=== PATIENT | female | born 1970 | race Hispanic/Latino ===

== ENCOUNTER → 2021-12-28 08:24 | Outpatient (CLI) | payer OTHER, SELFPAY ==
[2021-12-28 10:36] LABS: Follicle Stimulating Hormone 31.3 mIU/mL
[2021-12-28 10:52] LABS: Estradiol, Total 21.1 pg/mL
[2021-12-28 10:58] LABS: Cancer Antigen 125 15.6 U/mL (0-35)
== END ==
PROVIDERS: Referring Provider Obstetrics & Gynecology; Visit Provider Obstetrics & Gynecology
DX: N95.0 Postmenopausal bleeding (principal); R93.89 Abnormal findings on diagnostic imaging of other specified body structures; N83.209 Unspecified ovarian cyst, unspecified side
CPT/HCPCS: 36415; 82670; 83001; 86304

== ENCOUNTER 2022-01-06 12:23 | Emergency (ER) | payer OTHER, SELFPAY ==
[2022-01-06 13:01] VITALS: BP 134/101; PULSE 78; RESP 18; TEMP 36.8; O2SAT 99; BMI 40.7
--- NOTE | 2022-01-06 13:06 | DI.RAD.S_ITS ---
PROCEDURE: XR FOOT LT MIN 3V INDICATIONS: pain, edema TECHNIQUE: 3 views of the foot were acquired. COMPARISON: None. FINDINGS: Bones: No fractures or dislocations. No suspicious bony lesions. Mild degenerative joint disease at the tailor navicular joint and naviculocuneiform joint. Soft tissues: No tibiotalar joint effusion. Achilles tendon appears normal. IMPRESSION: No acute osseous abnormalities. Mild degenerative joint disease. Dictated by: Yakov Worley M.D. on 01/06/2022 at 13:47 Approved by: Yakov Worley M.D. on 01/06/2022 at 13:49
--- NOTE | 2022-01-06 13:07 | DI.RAD.S_ITS ---
PROCEDURE: XR ANKLE LT MIN 3V INDICATIONS: pain, edema TECHNIQUE: 3 views of the ankle were acquired. COMPARISON: [facility], CR, XR FOOT LT MIN 3V, 01/06/2022, 13:15. FINDINGS: Bones: No fractures or dislocations. Ankle mortise is normally aligned. No suspicious bony lesions. Soft tissues: No tibiotalar joint effusion. Achilles tendon appears normal. IMPRESSION: No acute osseous abnormalities. If clinical symptoms persist, advanced imaging such as CT or MRI is suggested for further evaluation. Dictated by: Yakov Worley M.D. on 01/06/2022 at 13:42 Approved by: Yakov Worley M.D. on 01/06/2022 at 13:47
[2022-01-06 14:30] VITALS: BP 141/80; PULSE 73; RESP 18; O2SAT 99
--- NOTE | 2022-01-06 14:50 | ED.LOWEXIN ---
HPI - Extremity Injury (Lower) <Kyle Obregon PA-C - Last Filed: 01/06/22 19:44> General Chief Complaint: Extremity Injury, Lower Stated Complaint: Thinks broken foot Time Seen by Provider: 01/06/22 13:30 Source: patient Mode of arrival: Wheelchair History of Present Illness HPI Narrative: Patient has pain in her left lower leg and foot that started about a week ago. He stated she has been soaking the foot and lower extremity in the absence of about a week. Patient states yesterday she was walking around she noticed swelling of the foot. Patient states that the pain was worse when she took her shoe off. Patient states she took hydrocodone for pain. He uses hydrocodone as she took leftover from a previous procedure she had in the past. Patient admits that the swelling has subsided. Patient states the swelling subsided after she soak the foot and ice here today. Patient states it is very difficult for her to walk on the foot. Patient denies any other concerns at this time Related Data Home Medications Medication Instructions Recorded Confirmed oxycodone 5 mg capsule 5 mg PO Q6H PRN pain 12/01/21 01/13/22 cetirizine 10 mg tablet (Zyrtec) 10 mg PO DAILY 01/13/22 01/13/22 Allergies Allergy/AdvReac Type Severity Reaction Status Date / Time prochlorperazine Allergy Severe cardiac Verified 12/31/21 13:40 [From Compazine] arrest venom-honey bee Allergy Severe Anaphylaxis Verified 12/31/21 13:40 Review of Systems <Kyle Obregon PA-C - Last Filed: 01/06/22 19:44> Review of Systems Narrative: R.O.S.: General: No fever, chills, fatigue or other concerns. Cardiovascular: No chest pain, palpitations or other Cardiovascular related concerns. Respiratory: No S.O.B. or other Respiratory related concerns. HEENT: No congestion, ear pain, rhinorrhea, sore throat or tinnitus Gastrointestinal: No nausea, vomiting or other Gastrointestinal related concerns. Skin: No rash or associated abnormalities Neurological: Awake, alert and in not apparent distress. No Headaches, changes in vision or other related neurological concerns. Musculoskeletal: Has pain and swelling of left lower extremity and foot. Constitutional Constitutional: Denies body ache(s), Denies chills, Denies daytime sleepiness, Denies excessive sweating, Denies fatigue, Denies fever(s) and Denies snoring Cardiovascular Cardiovascular: Denies dyspnea and Denies dyspnea on exertion Respiratory Respiratory: Reports system reviewed and no additional complaints, except as documented, Denies chest congestion, Denies cough, Denies pain with cough, Denies dyspnea, Denies dyspnea on exertion, Denies snoring, Denies stridor and Denies wheezing Endocrine Endocrine: Denies excessive sweating and Denies fatigue Allergic/Immunologic Allergic/Immunologic: Denies wheezing Patient History <Kyle Obregon PA-C - Last Filed: 01/06/22 19:44> Surgical History (Updated 01/14/22 @ 01:42 by ELI Villegas) No history of previous surgery Family History (Updated 01/14/22 @ 01:43 by ELI Villegas) Mother Hypertension Other Diabetes mellitus Social History household members: spouse Smoking Status: Never smoker Smoking Status: Never smoker alcohol intake frequency: holidays/special occasions only Substance Use Type: does not use Exam <Kyle Obregon PA-C - Last Filed: 01/06/22 19:44> Initial Vital Signs Initial Vital Signs: Vital Signs Temperature 98.3 F 01/06/22 13:01 Pulse Rate 78 01/06/22 13:01 Respiratory Rate 18 01/06/22 13:01 Blood Pressure 134/101 H 01/06/22 13:01 Pulse Oximetry 99 01/06/22 13:01 Oxygen Delivery Method 01/06/22 13:01 Extrem Other: Pt has tenderness to dorsal area of left foot at 3rd thru 5th Metatarsal area. Foot has minimal to no swelling with good ROM. Left Foot has good capillary refill and intact sensation to touch. <Yareli Robins DO - Last Filed: 01/14/22 07:56> Initial Vital Signs Initial Vital Signs: Vital Signs Temperature 98.3 F 01/06/22 13:01 Pulse Rate 78 01/06/22 13:01 Respiratory Rate 18 01/06/22 13:01 Blood Pressure 134/101 H 01/06/22 13:01 Pulse Oximetry 99 01/06/22 13:01 Oxygen Delivery Method 01/06/22 13:01 Course <Kyle Obregon PA-C - Last Filed: 01/06/22 19:44> Orders Ordered: Discontinued Medications Ketorolac Tromethamine (Ketorolac 30 Mg/Ml Vial) 30 mg IM NOW ONE Stop: 01/06/22 14:24 Last Admin: 01/06/22 15:08 Dose: 30 mg Documented By: JOSE M Vital Signs Vital signs: Vital Signs - 8 hr 01/06/22 13:01 01/06/22 14:30 Temperature 98.3 F Pulse Rate 78 73 Respiratory Rate 18 18 Blood Pressure 134/101 H 141/80 H Pulse Oximetry 99 99 Oxygen Delivery Method Room Air Room Air <Yareli Robins DO - Last Filed: 01/14/22 07:56> Orders Ordered: Discontinued Medications Ketorolac Tromethamine (Ketorolac 30 Mg/Ml Vial) 30 mg IM NOW ONE Stop: 01/06/22 14:24 Last Admin: 01/06/22 15:08 Dose: 30 mg Documented By: JOSE M Vital Signs Vital signs: Vital Signs - 8 hr 01/06/22 13:01 01/06/22 14:30 Temperature 98.3 F Pulse Rate 78 73 Respiratory Rate 18 18 Blood Pressure 134/101 H 141/80 H Pulse Oximetry 99 99 Oxygen Delivery Method Room Air Room Air MDM - Extremity Injury (Lower) <Kyle Obregon PA-C - Last Filed: 01/06/22 19:44> Imaging Data Extremity x-ray #1: Radiologist's Impression: PROCEDURE:? XR ANKLE LT MIN 3V ? INDICATIONS:? pain, edema ? TECHNIQUE:? 3 views of the ankle were acquired.? ? COMPARISON:? [facility], , XR FOOT LT MIN 3V, 01/06/2022, 13:15. ? FINDINGS:? ? Bones:? No fractures or dislocations.? Ankle mortise is normally aligned.? No suspicious bony lesions.? ? Soft tissues:? No tibiotalar joint effusion.? Achilles tendon appears normal.? ? ? IMPRESSION:? No acute osseous abnormalities.? If clinical symptoms persist, advanced imaging such as CT or MRI is suggested for further evaluation. ? ? ? Dictated by: Yakov Worley M.D. on 01/06/2022 at 13:42 ? ? Approved by: Yakov Worley M.D. on 01/06/2022 at 13:47 ? Extremity x-ray #2: Radiologist's Impression: PROCEDURE:? XR FOOT LT MIN 3V ? INDICATIONS:? pain, edema ? TECHNIQUE:? 3 views of the foot were acquired.? ? COMPARISON:? None. ? FINDINGS:? ? Bones:? No fractures or dislocations.? No suspicious bony lesions.? Mild degenerative joint disease at the tailor navicular joint and naviculocuneiform joint. ? Soft tissues:? No tibiotalar joint effusion.? Achilles tendon appears normal.? ? ? IMPRESSION:? No acute osseous abnormalities.? Mild degenerative joint disease. ? ? Dictated by: Yakov Worley M.D. on 01/06/2022 at 13:47 ? ? Approved by: Yakov Worley M.D. on 01/06/2022 at 13:49 ? MDM Narrative Medical decision making narrative: Patient to emergency room today with complaint of left lower extremity and left foot pain today. She states the pain started about a week ago and she has been soaking the foot in Epsom salts. Patient agrees that pain is continuous but the swelling resolved today after applying ice. Physical exam left lower ext lower extremity left foot was unremarkable except for tenderness to palpation. X-ray of left lower extremity and left foot were also negative unremarkable. This provider ordered a Toradol shot that was administered today. And advised patient to follow-up with an orthopedic provider. This provider provided contact information for our suggested orthopedic provider. Discharge Plan Departure Patient Disposition: Home Clinical Impression: Ankle sprain and strain, Foot sprain Activity Restrictions/Additional Instructions: *You have been diagnosed with [ Left lower extremity/foot sprain/strain.] Please refrain from increased activity involving your left foot and lower extremity. I suggest you continue to take NSAIDs for pain. I also suggest to follow-up with the orthopedic doctor in regards to your foot pain if this continues. *What to do: *Please continue to take your regular medications as directed. [x ] No new medications given *Please follow up with your primary care provider in 2-3 days, call for an appointment. Let them know you were seen in the Emergency Department and that we ask that you be seen in follow up. We will electronically transmit a record of today's note if your PCP is in our system *If you do not have a primary care provider please contact the [facility] Resource line at [phone]. They will ask some questions about your medical history and help get you set up with a doctor in the community. *Return to Emergency Department if you should have any new, worsening or concerning symptoms, such as [fever greater than 101 F, shaking chills, worsening pain, persistent vomiting or other bothersome symptoms] Prescriptions: No Action oxycodone 5 mg capsule 5 mg PO Q6H PRN (Reason: pain) cetirizine [Zyrtec] 10 mg Tablet 10 mg PO DAILY Referrals: Macey Pichardo MD [Physician] - As soon as possible (Please contact Dr Pichardo regarding foot pain if it remains a concern. ) Stand Alone Forms: Work Release Note Visit Report Forms: Patient Portal/API <Yareli Robins DO - Last Filed: 01/14/22 07:56> Cosign ED Attending Tristanature Attestation: I was immediately available in the department for consultation. Documentation has been reviewed.
[2022-01-06] MEDS: KETOROLAC 30 MG/ML VIAL IM (15:08)
[2022-01-06 15:31] VITALS: BP 117/83; PULSE 69; RESP 18; O2SAT 97
== END 2022-01-06 15:32 | disposition home or self-care (01) ==
PROVIDERS: Emergency Provider Physician Assistant
DX: S93.402A Sprain of unspecified ligament of left ankle, initial encounter (principal); S96.912A Strain of unspecified muscle and tendon at ankle and foot level, left foot, initial encounter; W19.XXXA Unspecified fall, initial encounter
CPT/HCPCS: 73610; 73630; 96372; 99283; J1885

== ENCOUNTER 2022-01-13 20:29 | Inpatient (IN) | payer OTHER, SELFPAY ==
[2022-01-13 20:34] VITALS: BP 154/104; PULSE 104; RESP 60; TEMP 38.6; O2SAT 95
--- NOTE | 2022-01-13 20:42 | DI.RAD.S_ITS ---
PROCEDURE: XR CHEST 1V INDICATIONS: shortness of breath TECHNIQUE: One view of the chest was acquired. COMPARISON: None. FINDINGS: Surgical changes and devices: None. Lungs and pleura: There are patchy indistinct airspace opacities medially in the right lung base. No pleural effusions or pneumothorax. Mediastinum: Mediastinal contours appear normal. Heart size is normal. Bones and chest wall: No suspicious bony lesions. Overlying soft tissues appear unremarkable. IMPRESSION: 1. Medial right basilar indistinct opacities are nonspecific but suggestive of atypical pneumonia given clinical history. Dictated by: Seth Warner M.D. on 01/13/2022 at 21:49 Approved by: Seth Warner M.D. on 01/13/2022 at 21:50
--- NOTE | 2022-01-13 20:45 | ED.GENADULT ---
HPI - General Adult General Chief complaint: Upper Respiratory Symptoms Stated complaint: covid+ Time Seen by Provider: 01/13/22 20:30 History of Present Illness HPI narrative: 51-year-old woman with minimal significant medical history, vaccinated against COVID, 1 episode of COVID already presents with significant respiratory distress and severe fatigue unable to get out of the car by herself the needing 3 person assist to get onto the stretcher with reports of Covid19 positive test at home and symptoms for approximately 2 days. She is altered so the timeline is needing additional confirmation. She states that she has been short of breath, coughing but is not able to participate more in history or review of systems. Related Data Home Medications Medication Instructions Recorded Confirmed oxycodone 5 mg capsule 5 mg PO Q6H PRN 12/01/21 12/31/21 Allergies Allergy/AdvReac Type Severity Reaction Status Date / Time prochlorperazine Allergy Severe cardiac Verified 12/31/21 13:40 [From Compazine] arrest venom-honey bee Allergy Severe Anaphylaxis Verified 12/31/21 13:40 Review of Systems Review of Systems ROS Unobtainable: Unobtainable due to medical condition Patient History Social History Smoking Status: Never smoker Smoking Status: Never smoker alcohol intake frequency: holidays/special occasions only Substance Use Type: does not use Exam Initial Vital Signs Initial Vital Signs: Vital Signs Temperature 101.5 F H 01/13/22 20:34 Pulse Rate 104 H 01/13/22 20:34 Respiratory Rate 60 H 01/13/22 20:34 Blood Pressure 154/104 H 01/13/22 20:34 Pulse Oximetry 95 01/13/22 20:34 Oxygen Delivery Method 01/13/22 20:34 General: Significant respiratory distress with impressive tachypnea, global weakness, altered mental status HEENT: dry mucous membranes, normal sclera with reactive pupils, Neck: No JVD, supple Respiratory: tachpnic but not kusmal breathing, Lungs are clear to auscultation, no wheezing no rales no rhonchi. Full and symmetrical air movement Cardiac: tachycardic but otherwise Regular rate and rhythm no murmurs no bruits Abdomen: Soft, nontender, good bowel tones, no flank pain Chest: salonpas patchover right scapula, no rashes Skin: Warm and dry, no rashes Neurologic: Globally weak, altered mental status, moving all extremities Extremities: Slonpas patch over dorsum L foot, well perfused, no edema Psych: Cooperative, appropriate insight and affect Course Orders Ordered: ED Orders 01/13/22 20:20 D Dimer Stat 01/13/22 20:40 Arterial Blood Gas Stat EKG-12 Lead Stat 01/13/22 20:42 XR chest 1V Stat Blood Culture Stat Measure peak expiratory flow ONCE RT Consult Eval and Treat Now 01/13/22 20:45 Complete Blood Count AUTO DIFF Stat Comprehensive Metabolic Panel Stat Lactate (Lactic Acid) Stat 01/13/22 21:23 Respiratory Panel (Film Array) Stat Sodium Chloride (Normal Saline 0.9%) 1,000 mls @ 1,000 mls/hr IV BOLUS ONE Stop: 01/13/22 23:13 Remdesivir 200 mg/ Sodium (Chloride) 250 mls @ 250 mls/hr IV NOW ONE Stop: 01/13/22 23:19 Discontinued Medications Dexamethasone (Dexamethasone 10 Mg/Ml Vial) 6 mg IV NOW ONE Stop: 01/13/22 22:21 Ondansetron HCl (Ondansetron 4 Mg/2 Ml Inj) 4 mg IV NOW ONE Stop: 01/13/22 22:15 Oxycodone/Acetaminophen (Oxycodone/Acetaminophen 5/325 Tablet) 1 tab PO NOW ONE Stop: 01/13/22 22:15 Vital Signs Vital signs: Vital Signs - 8 hr 01/13/22 20:34 Temperature 101.5 F H Pulse Rate 104 H Respiratory Rate 60 H Blood Pressure 154/104 H Pulse Oximetry 95 Oxygen Delivery Method Room Air Medical Decision Making Lab Data Result diagrams: 01/13/22 20:45 01/13/22 20:45 Labs: Lab Results 01/13/22 01/13/22 01/13/22 Range/Units 20:20 20:40 20:45 WBC 9.6 (4.5-11.0) X10^3/uL RBC 4.77 (4.0-5.2) X10^6/uL Hgb 14.6 (12.0-16.0) g/dL Hct 40.9 (36-46) % MCV 85.7 (80-100) fL MCH 30.5 (26-34) PG MCHC 35.6 (30-36) % RDW 13.1 (11.6-14.8) % Plt Count 314 (150-400) X10^3/uL Neut % (Auto) 82.7 H (50-75) % Lymph % (Auto) 9.1 L (25-40) % Sullivan % (Auto) 7.7 (3-14) % Eos % (Auto) 0.3 L (2-4) % Baso % (Auto) 0.2 (0-2) % Neut # (Auto) 7900 H (9540-5887) /uL Lymph # (Auto) 900 L (4113-1182) /uL Sullivan # (Auto) 700 (0-900) /uL Eos # (Auto) 0 (0-450) /uL Baso # (Auto) 0 (0-100) /uL D-Dimer < 500 (<500) ng/ml ABG pH 7.44 (7.35-7.45) ABG pCO2 36.9 (35-45) mmHg ABG pO2 118 H (80-100) mmHg ABG HCO3 25 (22-26) mmol/L ABG Total CO2 26 (21-31) mmol/L ABG O2 Saturation 99 (95-100) % ABG Base Excess 1.0 (-2-2) mmol/L FiO2 28 Sodium (137-145) mmol/L Potassium (3.4-5.1) mmol/L Chloride (98-107) mmol/L Carbon Dioxide (22-32) mmol/L BUN (7-17) mg/dL Creatinine (0.52-1.04) mg/dL Estimated GFR (>60) mL/min BUN/Creatinine Ratio (6-22) Glucose (70-100) mg/dL Lactate (0.7-2.1) mmol/L Calcium (8.4-10.2) mg/dL Total Bilirubin (0.2-1.3) mg/dL AST (14-36) IU/L ALT (<35) IU/L Alkaline Phosphatase (38-126) U/L Total Protein (6.3-8.2) g/dL Albumin (3.5-5.0) g/dL Globulin (1.7-4.1) g/dL Albumin/Globulin Ratio (1.0-2.8) 01/13/22 01/13/22 Range/Units 20:45 20:45 WBC (4.5-11.0) X10^3/uL RBC (4.0-5.2) X10^6/uL Hgb (12.0-16.0) g/dL Hct (36-46) % MCV (80-100) fL MCH (26-34) PG MCHC (30-36) % RDW (11.6-14.8) % Plt Count (150-400) X10^3/uL Neut % (Auto) (50-75) % Lymph % (Auto) (25-40) % Sullivan % (Auto) (3-14) % Eos % (Auto) (2-4) % Baso % (Auto) (0-2) % Neut # (Auto) (9058-1421) /uL Lymph # (Auto) (8565-0942) /uL Sullivan # (Auto) (0-900) /uL Eos # (Auto) (0-450) /uL Baso # (Auto) (0-100) /uL D-Dimer (<500) ng/ml ABG pH (7.35-7.45) ABG pCO2 (35-45) mmHg ABG pO2 (80-100) mmHg ABG HCO3 (22-26) mmol/L ABG Total CO2 (21-31) mmol/L ABG O2 Saturation (95-100) % ABG Base Excess (-2-2) mmol/L FiO2 Sodium 135 L (137-145) mmol/L Potassium 3.9 (3.4-5.1) mmol/L Chloride 102 (98-107) mmol/L Carbon Dioxide 26 (22-32) mmol/L BUN 10 (7-17) mg/dL Creatinine 0.61 (0.52-1.04) mg/dL Estimated GFR > 60 (>60) mL/min BUN/Creatinine Ratio 16.4 (6-22) Glucose 114 H (70-100) mg/dL Lactate 1.6 (0.7-2.1) mmol/L Calcium 8.8 (8.4-10.2) mg/dL Total Bilirubin 0.3 (0.2-1.3) mg/dL AST 55 H (14-36) IU/L ALT 42 H (<35) IU/L Alkaline Phosphatase 177 H (38-126) U/L Total Protein 8.3 H (6.3-8.2) g/dL Albumin 4.3 (3.5-5.0) g/dL Globulin 4.0 (1.7-4.1) g/dL Albumin/Globulin Ratio 1.1 (1.0-2.8) Imaging Data Chest x-ray: Radiologist's Impression: FINDINGS:? ? Surgical changes and devices:? None.? ? Lungs and pleura:? There are patchy indistinct airspace opacities medially in the right lung base.? No pleural effusions or pneumothorax.? ? Mediastinum:? Mediastinal contours appear normal.? Heart size is normal.? ? Bones and chest wall:? No suspicious bony lesions.? Overlying soft tissues appear unremarkable.? ? IMPRESSION:? ? 1. Medial right basilar indistinct opacities are nonspecific but suggestive of atypical pneumonia given clinical history.? ? Dictated by: Seth Warner M.D. on 01/13/2022 at 21:49 ? ? ECG Data Interpretation: Sinus rhythm at a rate of 99 Normal intervals, normal axis No acute ischemic change MDM Narrative Medical decision making narrative: Re-evaluation patient is looking slightly better and is able to answer more questions. She states that she has been vomiting, she has a severe headache, severe myalgias incredible fatigue but has not been able to sleep due to the cough and headache. Labs are quite reassuring with no evidence of sepsis acute coronary syndrome, pulmonary embolism. Chest x-ray is consistent with mild COVID pneumonia. Despite her tachypnea, her ABG is reassuring. Respiratory rate has come down from the 60s into the upper 20s and 30s on 2 L of oxygen. Oxygen saturations have always consistently been above 95% tender currently at 100% on 2 L. Given the history of vomiting will go ahead and give her L of fluid, some Zofran to help with the nausea Percocet to help with the headache, myalgias and also suppress her cough. She is weak enough in tachypneic enough that hospitalization is appropriate at this time and will contact the hospitalist. Initial dose of dexamethasone and remdesivir given the emergency department with additional follow-up orders per the hospitalist service. Discharge Plan Departure Patient Disposition: Admitted As Inpatient Clinical Impression: Pneumonia due to 2019 novel coronavirus, Acute respiratory distress
[2022-01-13 21:06] LABS: Add Manual Diff / Slide Review NO; Basophils Absolute Auto 0 /uL (0-100); Basophils Percent Auto 0.2 % (0-2); Eosinophils Absolute Auto 0 /uL (0-450); Eosinophils Percent Auto 0.3 % (2-4); Hematocrit 40.9 % (36-46); Hemoglobin 14.6 g/dL (12.0-16.0); Lymphocytes Absolute Auto 900 /uL (1100-4500); Lymphocytes Percent Auto 9.1 % (25-40); Mean Corpuscular HGB Conc 35.6 % (30-36); Mean Corpuscular Hemoglobin 30.5 PG (26-34); Mean Corpuscular Volume 85.7 fL (80-100); Monocytes Absolute Auto 700 /uL (0-900); Monocytes Percent Auto 7.7 % (3-14); Neutrophils Absolute Auto 7900 /uL (1500-7000); Neutrophils Percent Auto 82.7 % (50-75); Platelet Count 314 X10^3/uL (150-400); Red Blood Cell Count 4.77 X10^6/uL (4.0-5.2); Red Cell Distribution Width 13.1 % (11.6-14.8); White Blood Cell Count 9.6 X10^3/uL (4.5-11.0)
[2022-01-13 21:06] LABS: HCO3 ABG 25 mmol/L (22-26); Oxygen Saturation ABG 99 % (95-100); PCO2 ABG 36.9 mmHg (35-45); PO2 ABG 118 mmHg (80-100); TCO2 ABG 26 mmol/L (21-31); pH ABG 7.44 (7.35-7.45)
[2022-01-13 21:07] LABS: Fractionated Inspired Oxygen 28
[2022-01-13 21:13] LABS: D Dimer < 500 ng/ml (<500)
[2022-01-13 21:16] LABS: Alanine Aminotransferase 42 IU/L (<35); Albumin 4.3 g/dL (3.5-5.0); Albumin Globulin Ratio 1.1 (1.0-2.8); Alkaline Phosphatase 177 U/L (38-126); Aspartate Aminotransferase 55 IU/L (14-36); BUN Creatinine Ratio 16.4 (6-22); Bilirubin Total 0.3 mg/dL (0.2-1.3); Blood Urea Nitrogen 10 mg/dL (7-17); Calcium 8.8 mg/dL (8.4-10.2); Carbon Dioxide 26 mmol/L (22-32); Chloride 102 mmol/L (98-107); Estimated Glomerular Filt Rate > 60 mL/min (>60); Glucose 114 mg/dL (70-100); HEMOLYSIS < 15 (0-50); Potassium 3.9 mmol/L (3.4-5.1); Sodium 135 mmol/L (137-145); Total Protein 8.3 g/dL (6.3-8.2)
[2022-01-13 21:18] LABS: Lactate (Lactic Acid) 1.6 mmol/L (0.7-2.1)
[2022-01-13 22:26] VITALS: PULSE 105; RESP 25; O2SAT 100
[2022-01-13 22:30] VITALS: BP 123/68; PULSE 101; RESP 16; O2SAT 99
[2022-01-13] MEDS: DEXAMETHASONE 10 MG/ML VIAL 6 MG IV (22:30)
[2022-01-13] MEDS: ONDANSETRON 4 MG/2 ML INJ IV (22:30)
[2022-01-13] MEDS: SODIUM CHLORIDE 0.9% 1,000 ML 1000 ML IV (22:30)
[2022-01-13] MEDS: OXYCODONE/ACETAMINOPHEN 5/325 TABLET 1 TAB PO (22:30)
[2022-01-13] MEDS: REMDESIVIR 200 MG in SODIUM CHLORIDE 0.9% 210 ML 250 MG IV (22:47)
[2022-01-13 22:50] LABS: Adenovirus Not Detected (Not Detect)
[2022-01-13 22:53] LABS: B. parapertussis Not Detected (Not Detecte); Bordetella pertussis Not Detected (Not Detecte); Coronavirus 229E Not Detected (Not Detect); Coronavirus HKU1 Not Detected (Not Detect); Coronavirus NL 63 Not Detected (Not Detect); Coronavirus OC43 Not Detected (Not Detect); Human Metapneumovirus Not Detected (Not Detect); Human Rhinovirus/Enterovirus Not Detected (Not Detect); Influenza A Not Detected (Not Detect); Influenza B Not Detected (Not Detect); Parainfluenza Virus 1 Not Detected (Not Detect); Parainfluenza Virus 2 Not Detected (Not Detect); Parainfluenza Virus 3 Not Detected (Not Detect); Parainfluenza Virus 4 Not Detected (Not Detect); Respiratory Syncytial Virus Not Detected (Not Detect); SARS- CoV-2 Detected (Not Detecte)
[2022-01-13 22:54] LABS: Chlamydophila pneumoniae Not Detected (Not Detect); Mycoplasma pneumoniae Not Detected (Not Detect)
[2022-01-13 23:12] VITALS: BMI 41.6
--- NOTE | 2022-01-13 23:47 | P.HP_ITS ---
History of Present Illness History of Present Illness Date Patient Seen: 01/13/22 Time Patient Seen: 23:47 Chief complaint: covid+ Narrative: Leighann Walker is a 51-year-old female who is now on her 3rd episode of COVID-19 pneumonia. She states she has been feeling poorly for the past 3 days, has a headache, fever, nausea with vomiting, productive cough, body aches and possibly unrelated left-sided foot swelling to the point of requiring her to stop working. 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 She states that she got COVID [place] and she has been vaccinated with 1 booster. In the emergency room the patient it is oxygen saturation was no home but she was very tachypneic at a respiratory rate of 60. When she was administered oxygen by nasal cannula her blood respiratory rate went down to the 20s and 30s on 2 L of nasal cannula. Chest x-ray very done in the ED indicated medial right basilar indistinct opacities...suggestive of an atypical pneumonia. CBC is unremarkable except with a mildly elevated neutrophil count of 7900 and a low lymph count of 900, ABG is largely normal, she had a sodium of 135, glucose of 114, mildly elevated transaminases with an AST of 55 ALT 42 alk-phos 177, viral PCR panel is negative with exception of COVID-19 which was positive. Patient History Surgical History (Updated 01/14/22 @ 01:42 by ELI Villegas) No history of previous surgery Family & Social History Family History (Updated 01/14/22 @ 01:43 by ELI Villegas) Mother Hypertension Other Diabetes mellitus Social History: household members spouse Prior Living Arrangements House Safety & Behavioral: Feels Safe in Current Yes Environment Been Physically Hurt or No Threatened By a Person Tobacco & Substance use: Smoking Status Never smoker alcohol intake frequency holiday/special occasion Substance Use Type does not use Meds Home Medications and Allergies Home Medications Medication Instructions Recorded Confirmed Type oxycodone 5 mg capsule 5 mg PO Q6H PRN pain 12/01/21 01/13/22 History cetirizine 10 mg tablet (Zyrtec) 10 mg PO DAILY 01/13/22 01/13/22 History Allergies Allergy/AdvReac Type Severity Reaction Status Date / Time prochlorperazine Allergy Severe cardiac Verified 12/31/21 13:40 [From Compazine] arrest venom-honey bee Allergy Severe Anaphylaxis Verified 12/31/21 13:40 Review of Systems Review of Systems ROS: Yes All systems reviewed with the patient and are negative except as otherwise documented Exam Vital Signs (past 8 hours): - 01/13/22 20:34 01/13/22 22:26 01/13/22 22:30 Temperature 101.5 F H Pulse Rate 104 H 105 H Respiratory Rate 60 H 25 H Blood Pressure 154/104 H 123/68 Pulse Oximetry 95 100 Oxygen Delivery Method Room Air Nasal Cannula Oxygen Flow Rate 2 01/13/22 22:30 Temperature Pulse Rate 101 H Respiratory Rate 16 Blood Pressure Pulse Oximetry 99 Oxygen Delivery Method Nasal Cannula Oxygen Flow Rate 2 Oxygen Delivery Method Nasal Cannula Oxygen Flow Rate 2 Narrative Exam Narrative: Gen: Alert, oriented, morbidly obese 51 y.o. female, appears uncomfortable HEENT: normocephalic, atraumatic, conjunctiva clear, sclera non-icteric, oral mucosa pink and moist Neck: supple, full ROM, no JVD, trachea is midline Resp: Lungs CTA, non-labored breathing on 2 L of nasal cannula CV: RRR, no murmur or rubs Abd: soft, non-tender, normoactive BTs Skin: no lesions or rashes, dry and intact Neuro: Alert and oriented X 4 w/no focal deficits. Speech clear and coherent. Extremities: Left leg is swollen and tender with a positive Syed?s sign, negative on the right Psyche: Mildly labile normal mood and affect. Objective Labs Result Diagrams: 01/13/22 20:45 01/13/22 20:45 Labs: Laboratory Results - last 24 hr 01/13/22 01/13/22 01/13/22 20:20 20:40 20:45 WBC 9.6 RBC 4.77 Hgb 14.6 Hct 40.9 MCV 85.7 MCH 30.5 MCHC 35.6 RDW 13.1 Plt Count 314 Neut % (Auto) 82.7 H Lymph % (Auto) 9.[address] [place] % (Auto) 7.7 Eos % (Auto) 0.3 L Baso % (Auto) 0.2 Neut # (Auto) 7900 H Lymph # (Auto) [address] [place] [place] # (Auto) 700 Eos # (Auto) 0 Baso # (Auto) 0 D-Dimer < 500 ABG pH 7.44 ABG pCO2 36.9 ABG pO2 118 H ABG HCO3 25 ABG Total CO2 26 ABG O2 Saturation 99 ABG Base Excess 1.0 FiO2 28 Sodium Potassium Chloride Carbon Dioxide BUN Creatinine Estimated GFR BUN/Creatinine Ratio Glucose Lactate Calcium Total Bilirubin AST ALT Alkaline Phosphatase Total Protein Albumin Globulin Albumin/Globulin Ratio Chlamy pneumoniae PCR Adenovirus (PCR) B. pertussis DNA (PCR) B.parapertussis DNA PCR Coronavirus OC43 (PCR) Coronavirus HKU1 (PCR) Coronavirus 229E (PCR) SARS-CoV-2 (PCR) Coronavirus NL63 (PCR) Human Metapneumovir PCR Influenza Type A (PCR) Influenza Type B (PCR) M. pneumoniae (PCR) Parainfluenza 1 (PCR) Parainfluenza 2 (PCR) Parainfluenza 3 (PCR) Parainfluenza 4 (PCR) RSV (PCR) Entero/Rhino (PCR) 01/13/22 01/13/22 01/13/22 20:45 20:45 21:23 WBC RBC Hgb Hct MCV MCH MCHC RDW Plt Count Neut % (Auto) Lymph % (Auto) [place] % (Auto) Eos % (Auto) Baso % (Auto) Neut # (Auto) Lymph # (Auto) [place] # (Auto) Eos # (Auto) Baso # (Auto) D-Dimer ABG pH ABG pCO2 ABG pO2 ABG HCO3 ABG Total CO2 ABG O2 Saturation ABG Base Excess FiO2 Sodium 135 L Potassium 3.9 Chloride 102 Carbon Dioxide 26 BUN 10 Creatinine 0.61 Estimated GFR > 60 BUN/Creatinine Ratio 16.4 Glucose 114 H Lactate 1.6 Calcium 8.8 Total Bilirubin 0.3 AST 55 H ALT 42 H Alkaline Phosphatase 177 H Total Protein 8.3 H Albumin 4.3 Globulin 4.0 Albumin/Globulin Ratio 1.1 Chlamy pneumoniae PCR Not detected Adenovirus (PCR) Not detected B. pertussis DNA (PCR) Not detected B.parapertussis DNA PCR Not detected Coronavirus OC43 (PCR) Not detected Coronavirus HKU1 (PCR) Not detected Coronavirus 229E (PCR) Not detected SARS-CoV-2 (PCR) Detected H Coronavirus NL63 (PCR) Not detected Human Metapneumovir PCR Not detected Influenza Type A (PCR) Not detected Influenza Type B (PCR) Not detected M. pneumoniae (PCR) Not detected Parainfluenza 1 (PCR) Not detected Parainfluenza 2 (PCR) Not detected Parainfluenza 3 (PCR) Not detected Parainfluenza 4 (PCR) Not detected RSV (PCR) Not detected Entero/Rhino (PCR) Not detected Assessment & Plan Assessment & Plan narrative: Leighann Walker is admitted for treatment and management of COVID-19 pneumonia 1. COVID-19 Pneumonia, acute, present on admission * Patient was administered loading dose of IV Remdesevir 200 mg and dexamethasone 6 mg in the ED * Continue IV Remdesevir 100 mg and dexamethasone 6 mg starting 01/14 * Supplemental O2 by nasal cannula 1-2 liters * Patient has has been vaccinated with one booster * She is encouraged to prone 12 hours a day * This is her 3rd episode of COVID-19 Left lower leg and foot pain, present on admission * She has had for 1-2 weeks and unable to weight bear * US doppler ordered for tomorrow to r/o DVT * D-dimer was less than 500 * Patient may be in a hypercoagulable state VTE Prophylaxis: Wells risk score 4.5 Enoxaparin 55 mg subQ twice daily weight based right legl SCDs Patient is admitted to the inpatient service due to the severity of disease, risks of further disease progression and this stay is expected to exceed 2 midnights. FEN: IV fluids: saline lock, diet: general, labs: CBC, C/BMP, liver enzymes, Mag, PT/INR Consultants None Dispo: probable discharge to home Code status: Full Code as discussed with the patient who identifies her Johnna as her surrogate and POA. [X] I have utilized all available immediate resources to obtain, update, or review of the patient's current medications COVID-19 COVID-19 status: Positive Result date/Date tested (Pos, Neg/Pending): 01/13/22 Time Spent With Patient Critical Care time: I spent a total of [] minutes of critical care time on this patient's care today; this time is exclusive of procedural time. Scores Wells' Criteria for PE Clinical signs and symptoms of DVT: Yes PE is #1 Dx or equally likely: No Heart rate > 100: Yes Immobilization at least 3 days or surg in previous 4 weeks: No History of PE or DVT: No Hemoptysis: No Malignancy w/Treatment within 6 months or palliative: No Wells' PE Score total: 4.5 Quality VTE Deep Vein Thrombosis/Pulmonary Embolism Present on Admission: No MIPS - Admit I confirm the patient?s Advance Care Plan is present, Code status is documented, Surrogate decision maker is in patient?s record [If Yes, STOP here]: Yes MIPS - DC The patient has current or prior documentation of left ventricular ejection fraction (LVEF) less than 40%, or moderate or severely depressed left ventricular systolic function.: No
--- NOTE | 2022-01-13 23:58 | PC.NURSE ---
Pt. admitted from Emergency room, diagnosed with Covid Pneumonia. Oriented to her room, awake but very lethargic. Occasional non productive cough & dyspnea with exertion. 2 liters 02/NC SPO2 99-100%, turned 02 down to 1 liter & sat. 97-98 %. Instructed to call for any needs & assistance, call light with in reach & bed alarm activated. Will cont. POC & monitor.
[2022-01-14] VITALS (8 sets, daily range): BP systolic 92–109; BP diastolic 55–67; PULSE 64–86; RESP 20–24; TEMP 35.9–37.6; O2SAT 96–100
[2022-01-14] MEDS: SODIUM CHLORIDE 0.9% FLUSH 10 ML IV ×4 (00:15→21:20)
[2022-01-14] MEDS: ENOXAPARIN 60 MG/0.6 ML SYRINGE 55 MG SUBCUT ×3 (00:27→20:19)
--- NOTE | 2022-01-14 07:00 | DI.US.S_ITS ---
PROCEDURE: US PERIPH VENOUS LOW EXTREM LT INDICATIONS: PAIN TECHNIQUE: Real-time imaging, as well as color and pulse Doppler interrogation, were performed of the lower extremity deep veins from the inguinal ligament to the popliteal fossa. COMPARISON: None. FINDINGS: The common femoral, femoral and popliteal veins are normally compressible, and free of intraluminal thrombus. Color and pulse Doppler demonstrate normal phasic intraluminal flow. There is normal augmentation response to distal compression maneuver. IMPRESSION: Negative for deep venous thrombosis. Dictated by: Isai Hilliard M.D. on 01/14/2022 at 7:22 Approved by: Isai Hilliard M.D. on 01/14/2022 at 7:22
[2022-01-14 08:39] LABS: Add Manual Diff / Slide Review NO; Basophils Absolute Auto 0 /uL (0-100); Basophils Percent Auto 0.2 % (0-2); Eosinophils Absolute Auto 0 /uL (0-450); Hematocrit 39.8 % (36-46); Hemoglobin 13.9 g/dL (12.0-16.0); Lymphocytes Absolute Auto 700 /uL (1100-4500); Lymphocytes Percent Auto 8.8 % (25-40); Mean Corpuscular Hemoglobin 30.3 PG (26-34); Mean Corpuscular Volume 86.6 fL (80-100); Monocytes Absolute Auto 100 /uL (0-900); Monocytes Percent Auto 1.6 % (3-14); Neutrophils Absolute Auto 7600 /uL (1500-7000); Neutrophils Percent Auto 89.4 % (50-75); Platelet Count 319 X10^3/uL (150-400); Red Cell Distribution Width 12.8 % (11.6-14.8); White Blood Cell Count 8.5 X10^3/uL (4.5-11.0)
[2022-01-14 09:10] LABS: Alanine Aminotransferase 35 IU/L (<35); Albumin 3.9 g/dL (3.5-5.0); Albumin Globulin Ratio 1.1 (1.0-2.8); Alkaline Phosphatase 145 U/L (38-126); Aspartate Aminotransferase 41 IU/L (14-36); BUN Creatinine Ratio 19.3 (6-22); Bilirubin Total 0.3 mg/dL (0.2-1.3); Blood Urea Nitrogen 11 mg/dL (7-17); Calcium 8.3 mg/dL (8.4-10.2); Carbon Dioxide 26 mmol/L (22-32); Chloride 105 mmol/L (98-107); Estimated Glomerular Filt Rate > 60 mL/min (>60); Globulin 3.6 g/dL (1.7-4.1); Glucose 142 mg/dL (70-100); HEMOLYSIS < 15 (0-50); Sodium 137 mmol/L (137-145); Total Protein 7.5 g/dL (6.3-8.2)
[2022-01-14] MEDS: DEXAMETHASONE 10 MG/ML VIAL 6 MG IV (09:18)
[2022-01-14] MEDS: OXYCODONE/ACETAMINOPHEN 7.5/325 TABLET 1 TAB PO (09:21)
[2022-01-14] MEDS: IBUPROFEN 400 MG TABLET PO (12:54)
[2022-01-14] MEDS: ACETAMINOPHEN 325 MG TABLET 650 MG PO (12:55)
[2022-01-14] MEDS: EXCEDRIN EXTRA STRENGTH 2 EACH PO (18:27)
--- NOTE | 2022-01-14 19:42 | PM.PN.1 ---
Subjective Subjective Date Patient Seen: 01/14/22 Interval history: 51-year-old female with class 3 obesity admitted with COVID 19 pneumonia. She was admitted last night. This is her 3rd episode of of COVID. She had her 1st bout with COVID in June of 2020 and required hospitalization for a couple of days. Is her 2nd episode was in October of 2020 and Lamictal she was hospitalized for 4-5 days. She has been vaccinated with the Moderna vaccine x2 but has not yet received a booster. She reports chest tightness, headache, and diffuse myalgias this time. She also reports pain in her left calf. Exam Vital Signs (past 8 hours): - 01/14/22 14:34 01/14/22 17:00 Temperature 97.9 F Pulse Rate 72 Respiratory Rate 20 Blood Pressure 92/59 L Pulse Oximetry 99 96 Oxygen Delivery Method Nasal Cannula Oxygen Flow Rate 1 1 Oxygen Delivery Method Nasal Cannula Oxygen Flow Rate 1 Const Other: GEN: Ill-appearing middle-aged female, Alert and oriented x 3, appears fatigued HEENT:NC, Face symmetric CHEST: Respiratory excursions symmetric, CTAB CV: RRR, no M/R/G ABD: Soft, NT/ND, BT present in all 4 quadrants, no organomegaly or masses EXTR: warm, well perfused, no C/C/E SKIN: warm and dry, no rash NEURO: Alert and oriented x 3, nonfocal Objective Labs Result Diagrams: 01/14/22 07:55 01/14/22 07:55 Labs: Laboratory Results - last 24 hr 01/13/22 01/13/22 01/13/22 20:20 20:40 20:45 WBC 9.6 RBC 4.77 Hgb 14.6 Hct 40.9 MCV 85.7 MCH 30.5 MCHC 35.6 RDW 13.1 Plt Count 314 Neut % (Auto) 82.7 H Lymph % (Auto) 9.1 L [place] % (Auto) 7.7 Eos % (Auto) 0.3 L Baso % (Auto) 0.2 Neut # (Auto) 7900 H Lymph # (Auto) 900 L [place] # (Auto) 700 Eos # (Auto) 0 Baso # (Auto) 0 D-Dimer < 500 ABG pH 7.44 ABG pCO2 36.9 ABG pO2 118 H ABG HCO3 25 ABG Total CO2 26 ABG O2 Saturation 99 ABG Base Excess 1.0 FiO2 28 Sodium Potassium Chloride Carbon Dioxide BUN Creatinine Estimated GFR BUN/Creatinine Ratio Glucose Lactate Calcium Total Bilirubin AST ALT Alkaline Phosphatase Total Protein Albumin Globulin Albumin/Globulin Ratio Chlamy pneumoniae PCR Adenovirus (PCR) B. pertussis DNA (PCR) B.parapertussis DNA PCR Coronavirus OC43 (PCR) Coronavirus HKU1 (PCR) Coronavirus 229E (PCR) SARS-CoV-2 (PCR) Coronavirus NL63 (PCR) Human Metapneumovir PCR Influenza Type A (PCR) Influenza Type B (PCR) M. pneumoniae (PCR) Parainfluenza 1 (PCR) Parainfluenza 2 (PCR) Parainfluenza 3 (PCR) Parainfluenza 4 (PCR) RSV (PCR) Entero/Rhino (PCR) 01/13/22 01/13/22 01/13/22 20:45 20:45 21:23 WBC RBC Hgb Hct MCV MCH MCHC RDW Plt Count Neut % (Auto) Lymph % (Auto) [place] % (Auto) Eos % (Auto) Baso % (Auto) Neut # (Auto) Lymph # (Auto) [place] # (Auto) Eos # (Auto) Baso # (Auto) D-Dimer ABG pH ABG pCO2 ABG pO2 ABG HCO3 ABG Total CO2 ABG O2 Saturation ABG Base Excess FiO2 Sodium 135 L Potassium 3.9 Chloride 102 Carbon Dioxide 26 BUN 10 Creatinine 0.61 Estimated GFR > 60 BUN/Creatinine Ratio 16.4 Glucose 114 H Lactate 1.6 Calcium 8.8 Total Bilirubin 0.3 AST 55 H ALT 42 H Alkaline Phosphatase 177 H Total Protein 8.3 H Albumin 4.3 Globulin 4.0 Albumin/Globulin Ratio 1.1 Chlamy pneumoniae PCR Not detected Adenovirus (PCR) Not detected B. pertussis DNA (PCR) Not detected B.parapertussis DNA PCR Not detected Coronavirus OC43 (PCR) Not detected Coronavirus HKU1 (PCR) Not detected Coronavirus 229E (PCR) Not detected SARS-CoV-2 (PCR) Detected H Coronavirus NL63 (PCR) Not detected Human Metapneumovir PCR Not detected Influenza Type A (PCR) Not detected Influenza Type B (PCR) Not detected M. pneumoniae (PCR) Not detected Parainfluenza 1 (PCR) Not detected Parainfluenza 2 (PCR) Not detected Parainfluenza 3 (PCR) Not detected Parainfluenza 4 (PCR) Not detected RSV (PCR) Not detected Entero/Rhino (PCR) Not detected 01/14/22 01/14/22 07:55 07:55 WBC 8.5 RBC 4.60 Hgb 13.9 Hct 39.8 MCV 86.6 MCH 30.3 MCHC 35.0 RDW 12.8 Plt Count 319 Neut % (Auto) 89.4 H Lymph % (Auto) 8.8 L [place] % (Auto) 1.6 L Eos % (Auto) 0.0 L Baso % (Auto) 0.2 Neut # (Auto) 7600 H Lymph # (Auto) 700 L [place] # (Auto) 100 Eos # (Auto) 0 Baso # (Auto) 0 D-Dimer ABG pH ABG pCO2 ABG pO2 ABG HCO3 ABG Total CO2 ABG O2 Saturation ABG Base Excess FiO2 Sodium 137 Potassium 4.0 Chloride 105 Carbon Dioxide 26 BUN 11 Creatinine 0.57 Estimated GFR > 60 BUN/Creatinine Ratio 19.3 Glucose 142 H Lactate Calcium 8.3 L Total Bilirubin 0.3 AST 41 H ALT 35 H Alkaline Phosphatase 145 H Total Protein 7.5 Albumin 3.9 Globulin 3.6 Albumin/Globulin Ratio 1.1 Chlamy pneumoniae PCR Adenovirus (PCR) B. pertussis DNA (PCR) B.parapertussis DNA PCR Coronavirus OC43 (PCR) Coronavirus HKU1 (PCR) Coronavirus 229E (PCR) SARS-CoV-2 (PCR) Coronavirus NL63 (PCR) Human Metapneumovir PCR Influenza Type A (PCR) Influenza Type B (PCR) M. pneumoniae (PCR) Parainfluenza 1 (PCR) Parainfluenza 2 (PCR) Parainfluenza 3 (PCR) Parainfluenza 4 (PCR) RSV (PCR) Entero/Rhino (PCR) [facility] Surgical History (Updated 01/14/22 @ 01:42 by ELI Villegas) No history of previous surgery Family History (Updated 01/14/22 @ 01:43 by ELI Villegas) Mother Hypertension Other Diabetes mellitus Social History household members: spouse Smoking Status: Never smoker Assessment & Plan Assessment & Plan narrative: 1. COVID-19 pneumonia Patient continues on remdesivir and dexamethasone. She is now off of supplemental oxygen. We discussed that the reason she likely is now having a 3rd COVID infection is due to the mutations with the virus as well as the fact that the current use variation of COVID has been resistant to the vaccine. Will continue supportive management. 2. Left lower leg and foot pain Ultrasound was negative for DVT. Likely will need therapies to help improve her symptoms. 3. Class 3 obesity BMI is 41.6. Would benefit from weight reduction. 4. Postmenopausal bleeding Patient reports she will be undergoing hysterectomy in the near future. 5. Transaminitis Likely secondary to COVID virus. Will monitor CMP daily in light of remdesivir treatment. 6. Hyperglycemia Likely related to dexamethasone treatment. She has no history of diabetes, though her obesity certainly increases her risk. Code status Full Prophylaxis Continue b.i.d. Lovenox Disposition Acute medical floor Time Spent With Patient Critical Care time: I spent a total of [] minutes of critical care time on this patient's care today; this time is exclusive of procedural time. Quality VTE Deep Vein Thrombosis/Pulmonary Embolism Present on Admission: No
[2022-01-14] MEDS: REMDESIVIR 100 MG in SODIUM CHLORIDE 0.9% 230 ML 250 MG IV (20:20)
[2022-01-14] MEDS: guaiFENesin ER 600 MG TAB PO (21:19)
--- NOTE | 2022-01-14 23:49 | PM.EVENT ---
Event Note Date Patient Seen: 01/14/22 Time Patient Seen: 23:49 Event Note (Rapid Response, Code, or fall): Rapid was called on this COVID-19 patient. She was sitting on the toilet and nursing said she became diaphoretic and almost passed out. She had been complaining of constipation, was given a dose of Miralax approximately 10 minutes prior. Suspect urgency, becoming lightheaded and was very labile when I saw her. She was administered a short course of O2 non-rebreather, then will be put back on NC when returned to bed. She appeared stable, alert, oriented and tearful.
[2022-01-14] MEDS: polyethylene glycoL 3350 17 GM POWD.PACK PO (23:52)
[2022-01-15] VITALS (11 sets, daily range): BP systolic 108–141; BP diastolic 64–77; PULSE 57–66; RESP 16–24; TEMP 36.2–37.1; O2SAT 93–98
--- NOTE | 2022-01-15 00:19 | PC.NURSE ---
2320 Pt. calling for assistance to the bathroom. She C/O constipation, ELI Lara notified order for Miralax received. SALVAGE REPAIRER reported that patient was pushing hard to have a bowel. Then SALVAGE REPAIRER called me to the bathroom while patient sitting in e commode. She became diaphoretic, her skin was old & clammy. Reported about to pass out, rapid response team activated, placed her on non re breather mask @ 25 liters SPO2 100%, Checked B/P 148/101 & HR 70. She was able to regained her consciousness & she drink some apple juice & water. She ambulated back to bed with 2 PA, gait belt & FWW. Rechecked VS after getting back to bed. B/P 129/64, HR 65, RR 24, Temp. 98.1 & SPO2 @ 1 liter 96%. Pt. reported everything looks fuzzy earlier all I saw was the yellow gowns but I can't see every body. Instructed to get some rest for now & Miralax was administered. Also reminded not to get OOB with any assistance & just use the BSC for tonight, Will cont. POC & monitor.
--- NOTE | 2022-01-15 04:49 | PC.NURSE ---
2320 Pt. calling for assistance to the bathroom. She C/O constipation, ELI Lara notified order of Miralax received. PAPERHANGER reported that patient was pushing too hard to have a bowel movement. Then PAPERHANGER called me to the bathroom, while patient was sitting in the commode. Pt. became diaphoretic, her skin was cold & clammy. She also reported she's about to pass out, rapid response activated. Placed her on NRB mask @ 25 liters, SPO2 100%. Checked her VS B/P 148/101 & HR 70. She was able to regained her consciousness & she drink some apple juice & water. She ambulated back to bed with 2 PA, gait belt & FWW. Rechecked her VS after getting back to bed. B/P 129/64, HR 65, RR 24, temp. 98.1 & SPO2 with 1 liter 02/NC 96%. Pt. reported everything looks fuzzy earlier when I was about to passed out. All I saw was the yellow gowns but I can't see everybody. Instructed to get some rest for now & Miralax was administered. Also reminded not to get OOB with out any assistance & just the BSC for tonight. Will cont. POC & monitor.
[2022-01-15 06:03] LABS: Add Manual Diff / Slide Review NO; Basophils Absolute Auto 0 /uL (0-100); Basophils Percent Auto 0.1 % (0-2); Eosinophils Absolute Auto 0 /uL (0-450); Hematocrit 37.8 % (36-46); Lymphocytes Absolute Auto 1500 /uL (1100-4500); Lymphocytes Percent Auto 14.7 % (25-40); Mean Corpuscular HGB Conc 34.3 % (30-36); Mean Corpuscular Hemoglobin 29.9 PG (26-34); Mean Corpuscular Volume 87.1 fL (80-100); Monocytes Absolute Auto 700 /uL (0-900); Monocytes Percent Auto 6.6 % (3-14); Neutrophils Absolute Auto 8100 /uL (1500-7000); Neutrophils Percent Auto 78.6 % (50-75); Platelet Count 320 X10^3/uL (150-400); Red Blood Cell Count 4.34 X10^6/uL (4.0-5.2); Red Cell Distribution Width 13.1 % (11.6-14.8); White Blood Cell Count 10.3 X10^3/uL (4.5-11.0)
[2022-01-15 06:05] LABS: Alanine Aminotransferase 31 IU/L (<35); Albumin 3.6 g/dL (3.5-5.0); Albumin Globulin Ratio 1.1 (1.0-2.8); Alkaline Phosphatase 123 U/L (38-126); Aspartate Aminotransferase 28 IU/L (14-36); BUN Creatinine Ratio 33.3 (6-22); Bilirubin Total 0.2 mg/dL (0.2-1.3); Blood Urea Nitrogen 18 mg/dL (7-17); Calcium 8.1 mg/dL (8.4-10.2); Carbon Dioxide 25 mmol/L (22-32); Chloride 106 mmol/L (98-107); Estimated Glomerular Filt Rate > 60 mL/min (>60); Globulin 3.3 g/dL (1.7-4.1); Glucose 129 mg/dL (70-100); HEMOLYSIS < 15 (0-50); Potassium 3.8 mmol/L (3.4-5.1); Sodium 138 mmol/L (137-145); Total Protein 6.9 g/dL (6.3-8.2)
--- NOTE | 2022-01-15 07:16 | PM.PN.1 ---
Subjective Subjective Date Patient Seen: 01/15/22 Interval history: 51-year-old female with class 3 obesity admitted with COVID 19 pneumonia.? She is presently hospital day 2..? This is her 3rd episode of of COVID.? She had her 1st bout with COVID in June of 2020 and required hospitalization for a couple of days.? She had her 2nd episode was in October of 2020 and she was hospitalized for 4-5 days.? She has been vaccinated with the Moderna vaccine x2 but has not yet received a booster. She reports persistent chest tightness, headache, and diffuse myalgias this time.? She did have an episode of vasovagal syncope last night in a rapid response was called. Today she is only getting up with assist. She states she is coughing up some sputum. Did get benefit with both cough drops and Robitussin. She continues to feel poorly overall. Has not required any oxygen. She notes she did have an injury to her left foot with significant pain. No evidence of fracture on x-ray imaging. She has been referred to an orthopedic foot and ankle specialist close plan for an MRI on an outpatient basis. She has been using ice on the foot today. Exam Vital Signs (past 8 hours): - 01/15/22 00:27 01/14/22 23:42 01/15/22 05:43 Temperature 98.1 F 97.8 F Pulse Rate 65 70 64 Respiratory Rate 24 22 18 Blood Pressure 129/64 108/67 Pulse Oximetry 96 94 Oxygen Delivery Method Oxygen Flow Rate 01/15/22 07:00 Temperature Pulse Rate Respiratory Rate Blood Pressure Pulse Oximetry 94 Oxygen Delivery Method Nasal Cannula Oxygen Flow Rate 1 Oxygen Delivery Method Nasal Cannula Oxygen Flow Rate 1 Narrative Exam Narrative: GEN:? Ill-appearing middle-aged female, Alert and oriented x 3, appears fatigued HEENT:NC, Face symmetric CHEST: Respiratory excursions symmetric, CTAB CV: RRR, no M/R/G ABD: Soft, NT/ND, BT present in all 4 quadrants, no organomegaly or masses EXTR: warm, well perfused, no C/C/E, point tenderness to the 3rd metatarsal SKIN: warm and dry, no rash NEURO: Alert and oriented x 3, nonfocal Objective Labs Result Diagrams: 01/15/22 05:35 01/15/22 05:35 Labs: Laboratory Results - last 24 hr 01/14/22 01/14/22 01/15/22 07:55 07:55 05:35 WBC 8.5 10.3 RBC 4.60 4.34 Hgb 13.9 13.0 Hct 39.8 37.8 MCV 86.6 87.1 MCH 30.3 29.9 MCHC 35.0 34.3 RDW 12.8 13.1 Plt Count 319 320 Neut % (Auto) 89.4 H 78.6 H Lymph % (Auto) 8.8 L 14.7 L [place] % (Auto) 1.6 L 6.6 Eos % (Auto) 0.0 L 0.0 L Baso % (Auto) 0.2 0.1 Neut # (Auto) 7600 H 8100 H Lymph # (Auto) 700 L 1500 [place] # (Auto) 100 700 Eos # (Auto) 0 0 Baso # (Auto) 0 0 Sodium 137 Potassium 4.0 Chloride 105 Carbon Dioxide 26 BUN 11 Creatinine 0.57 Estimated GFR > 60 BUN/Creatinine Ratio 19.3 Glucose 142 H Calcium 8.3 L Total Bilirubin 0.3 AST 41 H ALT 35 H Alkaline Phosphatase 145 H Total Protein 7.5 Albumin 3.9 Globulin 3.6 Albumin/Globulin Ratio 1.1 01/15/22 05:35 WBC RBC Hgb Hct MCV MCH MCHC RDW Plt Count Neut % (Auto) Lymph % (Auto) [place] % (Auto) Eos % (Auto) Baso % (Auto) Neut # (Auto) Lymph # (Auto) [place] # (Auto) Eos # (Auto) Baso # (Auto) Sodium 138 Potassium 3.8 Chloride 106 Carbon Dioxide 25 BUN 18 H Creatinine 0.54 Estimated GFR > 60 BUN/Creatinine Ratio 33.3 H Glucose 129 H Calcium 8.1 L Total Bilirubin 0.2 AST 28 ALT 31 Alkaline Phosphatase 123 Total Protein 6.9 Albumin 3.6 Globulin 3.3 Albumin/Globulin Ratio 1.1 [facility] Surgical History (Updated 01/14/22 @ 01:42 by ELI Villegas) No history of previous surgery Family History (Updated 01/14/22 @ 01:43 by ELI Villegas) Mother Hypertension Other Diabetes mellitus Social History household members: spouse Smoking Status: Never smoker Assessment & Plan Assessment & Plan narrative: 1. COVID-19 pneumonia Patient continues on remdesivir d3/5 and dexamethasone d3/10.? She remains off of supplemental oxygen.? We discussed that the reason she likely is now having a 3rd COVID infection is due to the mutations with the virus as well as the fact that, omicron has been resistant to the vaccine.? Will continue supportive management. 2. Left lower leg and foot pain Ultrasound was negative for DVT.? Advised that imaging and or MRI right now while she has active COVID would not be recommended. She expresses understanding. 3. Class 3 obesity BMI is 41.6.? Would benefit from weight reduction. 4. Postmenopausal bleeding Patient reports she will be undergoing hysterectomy in the near future. 5. Vasovagal syncope Advise she should not get up without assistance. She agrees. 6. Transaminitis Likely secondary to COVID virus.? Resolved on today's labs. 7. Hyperglycemia Likely related to dexamethasone treatment.? She has no history of diabetes, though her obesity certainly increases her risk. Code status Full Prophylaxis Continue b.i.d. Lovenox Disposition Acute medical floor Time Spent With Patient Critical Care time: I spent a total of [] minutes of critical care time on this patient's care today; this time is exclusive of procedural time. Quality VTE Deep Vein Thrombosis/Pulmonary Embolism Present on Admission: No
[2022-01-15] MEDS: ENOXAPARIN 60 MG/0.6 ML SYRINGE 55 MG SUBCUT ×2 (08:10→22:32)
[2022-01-15] MEDS: DEXAMETHASONE 10 MG/ML VIAL 6 MG IV (08:11)
[2022-01-15] MEDS: LORATADINE 10 MG TABLET PO (08:12)
[2022-01-15] MEDS: ACETAMINOPHEN 325 MG TABLET 650 MG PO ×2 (08:12→20:38)
[2022-01-15] MEDS: SENNOSIDES 8.6 MG TABLET PO (08:12)
[2022-01-15] MEDS: IBUPROFEN 400 MG TABLET PO ×2 (08:12→20:41)
[2022-01-15] MEDS: guaiFENesin ER 600 MG TAB PO (08:12)
[2022-01-15] MEDS: SODIUM CHLORIDE 0.9% FLUSH 10 ML IV ×2 (08:13→20:42)
[2022-01-15] MEDS: BENZOCAINE/MENTHOL 1 LOZ PKT 1 EACH PO ×2 (08:59→20:41)
--- NOTE | 2022-01-15 11:47 | CM.DANOTE ---
Initial DCP Assessment Note Pt is a 51 yo female, resident of [place], presents with significant respiratory distress and severe fatigue, found to be in her 3rd episode of COVID pneumonia PCP: KATHERINE Wagoner Payer: Romel Pelayo Reviewed chart, pt discussed in multidisciplinary rounds this morning. Patient has been titrating off O2 and expected to be discharged home in the next 24 hrs, to the care of her . D/t COVID-19 precautions, attempted call into room and was unable to reach patient. No barriers identified at this time to patient's safe discharge home w/family to assist; close outpatient f/u recommended. JOANN Madison Discharge Planning/Care Management CM Discharge Assessment Start: 01/15/22 11:43 Freq: Status: Active Protocol: Document 01/15/22 11:44 BRADEN (Rec: 01/15/22 11:47 BRADEN [id number]) Discharge Planning Assessment Assigned [place] JOANN Bah DPOA/Assigned Designee Name Isai Elizalde, spouse Contact Information [phone] Advance Directives? No Advance Directives on File No History Provided By Medical Record Prior Living Arrangements House Household Members spouse Type of transporation used prior to Drives own vehicle admit Independent with ADL's Yes Is patient alert and oriented? Yes Barriers to Discharge No Comment Home w/spouse Discharge Plan Home Transportation Arrangement Family to transport Referrals Initiated None needed
[2022-01-15] MEDS: guaiFENesin Solution 100 MG/5 ML UDC 200 MG PO ×2 (11:57→20:41)
[2022-01-15] MEDS: EXCEDRIN EXTRA STRENGTH 2 EACH PO ×2 (11:57→20:40)
--- NOTE | 2022-01-15 17:18 | PC.NURSE ---
Pt is AxOx4, needs STA to bathroom due feeling fatifue and weak. VSS, pt c/o migraine today and PRN Excedrine given with good effect.Also PRN Guiafenesin given for cough and it was effective. Pt is on Tele and it is SR. Pt is Covid 19 positive and has droplet precaution. Lungs diminished throughout and crackles bilateral bases. Otherwise, no changes. Will continue monitor.
[2022-01-15] MEDS: REMDESIVIR 100 MG in SODIUM CHLORIDE 0.9% 230 ML 250 MG IV (22:33)
[2022-01-16 06:00] VITALS: BP 126/79; PULSE 63; RESP 19; TEMP 36.3; O2SAT 95
[2022-01-16 06:37] LABS: Add Manual Diff / Slide Review NO; Basophils Absolute Auto 0 /uL (0-100); Basophils Percent Auto 0.1 % (0-2); Eosinophils Absolute Auto 0 /uL (0-450); Hematocrit 42.1 % (36-46); Hemoglobin 14.2 g/dL (12.0-16.0); Lymphocytes Absolute Auto 2900 /uL (1100-4500); Lymphocytes Percent Auto 25.8 % (25-40); Mean Corpuscular HGB Conc 33.8 % (30-36); Mean Corpuscular Hemoglobin 29.4 PG (26-34); Monocytes Absolute Auto 500 /uL (0-900); Monocytes Percent Auto 4.1 % (3-14); Neutrophils Absolute Auto 7800 /uL (1500-7000); Platelet Count 401 X10^3/uL (150-400); Red Blood Cell Count 4.84 X10^6/uL (4.0-5.2); Red Cell Distribution Width 13.3 % (11.6-14.8); White Blood Cell Count 11.1 X10^3/uL (4.5-11.0)
[2022-01-16 06:47] LABS: Alanine Aminotransferase 30 IU/L (<35); Albumin Globulin Ratio 1.1 (1.0-2.8); Alkaline Phosphatase 126 U/L (38-126); Aspartate Aminotransferase 30 IU/L (14-36); BUN Creatinine Ratio 32.8 (6-22); Bilirubin Total 0.3 mg/dL (0.2-1.3); Blood Urea Nitrogen 21 mg/dL (7-17); Calcium 8.4 mg/dL (8.4-10.2); Carbon Dioxide 27 mmol/L (22-32); Chloride 104 mmol/L (98-107); Estimated Glomerular Filt Rate > 60 mL/min (>60); Globulin 3.7 g/dL (1.7-4.1); Glucose 109 mg/dL (70-100); HEMOLYSIS < 15 (0-50); Potassium 3.6 mmol/L (3.4-5.1); Sodium 139 mmol/L (137-145); Total Protein 7.7 g/dL (6.3-8.2)
[2022-01-16 07:39] VITALS: O2SAT 94
[2022-01-16 07:40] VITALS: BP 124/77; PULSE 49; RESP 16; TEMP 36.4; O2SAT 95
[2022-01-16 08:15] VITALS: O2SAT 95
[2022-01-16] MEDS: DEXAMETHASONE 10 MG/ML VIAL 6 MG IV (10:15)
[2022-01-16] MEDS: ENOXAPARIN 60 MG/0.6 ML SYRINGE 55 MG SUBCUT (10:15)
[2022-01-16] MEDS: OXYCODONE/ACETAMINOPHEN 7.5/325 TABLET 1 TAB PO (10:17)
[2022-01-16] MEDS: SODIUM CHLORIDE 0.9% FLUSH 10 ML IV (10:17)
[2022-01-16] MEDS: SENNOSIDES 8.6 MG TABLET PO (10:17)
[2022-01-16 11:00] VITALS: BP 127/69; PULSE 59; RESP 16; TEMP 36.7; O2SAT 96
[2022-01-16 15:00] VITALS: BP 132/69; PULSE 89; RESP 18; TEMP 36.8; O2SAT 98
--- NOTE | 2022-01-16 17:49 | PM.DS.1 ---
History of Present Illness History of Present Illness Date Patient Seen: 01/16/22 Chief complaint: covid+ Narrative: Per admission history and physical: Leighann Walker is a 51-year-old female who is now on her 3rd episode of COVID-19 pneumonia.? She states she has been feeling poorly for the past 3 days, has a headache, fever, nausea with vomiting, productive cough, body aches and possibly unrelated left-sided foot swelling to the point of requiring her to stop working.? 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 She states that she got COVID from her [place] and she has been vaccinated with 1 booster. In the emergency room the patient it is oxygen saturation was no home but she was very tachypneic at a respiratory rate of 60.? When she was administered oxygen by nasal cannula her blood respiratory rate went down to the 20s and 30s on 2 L of nasal cannula.? Chest x-ray very done in the ED indicated medial right basilar indistinct opacities...suggestive of an atypical pneumonia.? CBC is unremarkable except with a mildly elevated neutrophil count of 7900 and a low lymph count of 900, ABG is largely normal, she had a sodium of 135, glucose of 114, mildly elevated transaminases with an AST of 55 ALT 42 alk-phos 177, viral PCR panel is negative with exception of COVID-19 which was positive. Discharge Providers Provider Date of admission: 01/13/22 22:29 Discharge Date: 01/16/22 Primary care physician: Rizwana MURPHY Provider Discharge provider: Yuliet De La Garza MD Summary Hospital Course Discharge Diagnosis: COVID-19 pneumonia Left lower leg and foot pain, negative for DVT Class 3 obesity with BMI of 41.6 Postmenopausal bleeding for which a hysterectomy is due to be performed in the next 2 months Vasovagal syncope, resolved Transaminitis, secondary to COVID, resolved Hyperglycemia, steroid induced Hospital Course: 51-year-old female with class 3 obesity admitted with COVID 19 pneumonia.? ? This is her 3rd episode of of COVID.? She had her 1st bout with COVID in June of 2020 and required hospitalization for a couple of days.? She had her 2nd episode was in October of 2020 and? she was hospitalized for 4-5 days.? She has been vaccinated with the Moderna vaccine x2 but has not yet received a booster. She contracted COVID from her . She had plan to have a booster in the fall. On the date of admission, she presented to the emergency department to keep neck with respiratory rate in the 60s. Although her oxygen saturations were within normal, she did require 2 L of oxygen to help reduce her respiratory rate and increased work of breathing. Chest x-ray revealed medial right basilar indistinct opacity suggestive of an atypical pneumonia. She was initiated on remdesivir and dexamethasone. On the day following admission, she continued to complain of chest tightness, headache, and diffuse myalgias. She did have a vasovagal syncope on the evening of January 14. She did not sustain any injuries. She was able to wean off of oxygen successfully on January 15. Respiratory rate remained stable. On the date of discharge, she had not had any recurrent vasovagal syncope. She was able to ambulate with saturations remaining at 98% on room air. She reported her take bed had returned and she was feeling improved. She is discharging in stable condition Status at Discharge Cognitive/behavioral status at discharge: at baseline, oriented Functional status at discharge: independent ambulation Overall status at discharge: patient is progressing back to baseline Time Spent with Patient Time spent: Less than 30 minutes Exam Vital Signs (past 8 hours): - 01/16/22 11:00 01/16/22 15:00 Temperature 98.0 F 98.3 F Pulse Rate 59 L 89 Respiratory Rate 16 18 Blood Pressure 127/69 132/69 Pulse Oximetry 96 98 Oxygen Delivery Method Room Air Oxygen Flow Rate 0 Narrative Exam Narrative: GEN:? Ill-appearing middle-aged female, Alert and oriented x 3, appears fatigued HEENT:NC, Face symmetric CHEST: Respiratory excursions symmetric, CTAB CV: RRR, no M/R/G ABD: Soft, NT/ND, BT present in all 4 quadrants, no organomegaly or masses EXTR: warm, well perfused, no C/C/E SKIN: warm and dry, no rash NEURO: Alert and oriented x 3, nonfocal Objective Labs Result Diagrams: 01/16/22 06:05 01/16/22 06:05 Labs: Laboratory Results - last 24 hr 01/16/22 01/16/22 06:05 06:05 WBC 11.1 H RBC 4.84 Hgb 14.2 Hct 42.1 MCV 87.0 MCH 29.4 MCHC 33.8 RDW 13.3 Plt Count 401 H Neut % (Auto) 70.0 Lymph % (Auto) 25.8 [place] % (Auto) 4.1 Eos % (Auto) 0.0 L Baso % (Auto) 0.1 Neut # (Auto) 7800 H Lymph # (Auto) 2900 [place] # (Auto) 500 Eos # (Auto) 0 Baso # (Auto) 0 Sodium 139 Potassium 3.6 Chloride 104 Carbon Dioxide 27 BUN 21 H Creatinine 0.64 Estimated GFR > 60 BUN/Creatinine Ratio 32.8 H Glucose 109 H Calcium 8.4 Total Bilirubin 0.3 AST 30 ALT 30 Alkaline Phosphatase 126 Total Protein 7.7 Albumin 4.0 Globulin 3.7 Albumin/Globulin Ratio 1.1 PFSH Surgical History (Updated 01/14/22 @ 01:42 by ELI Villegas) No history of previous surgery Family History (Updated 01/14/22 @ 01:43 by ELI Villegas) Mother Hypertension Other Diabetes mellitus Social History household members: spouse Smoking Status: Never smoker Discharge Plan Discharge Plan Patient Disposition: Home Provider Discharge Comment: 1. Pace yourself w/walking 2. Have your assist you around your home if you are feeling lightheaded 3. Continue to work on good hydration 4. Continue to wear an N95 until you are no longer symptomatic 5. Follow-up with your PCP for timing on getting your COVID booster Discharge orders & Medications Prescriptions: New acetaminophen 325 mg Tablet 650 mg PO Q6HR PRN (Reason: Fever/Mild Pain (1-3)) Qty: 30 0RF albuterol sulfate [Ventolin HFA] 90 mcg/actuation Hfa Aerosol Inhaler 1 puff INH RTQ6HR PRN (Reason: Shortness Of Breath) Qty: 1 0RF guaifenesin [Mucus Relief ER] 600 mg Tablet Extended Release 12hr 600 mg PO Q12HR PRN (Reason: Cough) Qty: 30 0RF dexamethasone 6 mg tablet 6 mg PO DAILY Qty: 7 0RF Continued oxycodone 5 mg capsule 5 mg PO Q6H PRN (Reason: pain) cetirizine [Zyrtec] 10 mg Tablet 10 mg PO DAILY Medication counseling provided by Pharmacist: No Follow up/Referrals: ProviderRizwana [Primary Care Provider] - Discharge Health Status Multidrug resistant organism: No MDRO Diet/Activity/Treatments Diet: Diet as Tolerated Activity: As tolerated, avoid rapid position changes from lying to sitting or sitting to standing Oxygen: N/A Visit Report/Discharge Packet Instructions: COVID-19, Post-COVID Syndrome, COVID-19: Can I Get It Again? Discharge Data Primary Care Provider: ProviderRizwana Quality VTE Deep Vein Thrombosis/Pulmonary Embolism Present on Admission: No
== END 2022-01-16 16:27 | disposition home or self-care (01) | DRG 177 ==
LOC: ED 22:20 → AC 22:30
PROVIDERS: Admitting Provider Nurse Practitioner Family; Emergency Provider Emergency Medicine; Referring Provider Emergency Medicine; Visit Provider Nurse Practitioner Family
DX: U07.1 COVID-19 (principal); J12.82 Pneumonia due to coronavirus disease 2019; Z68.41 Body mass index [BMI] 40.0-44.9, adult; E66.01 Morbid (severe) obesity due to excess calories; R55 Syncope and collapse; M79.672 Pain in left foot; M79.662 Pain in left lower leg; K59.00 Constipation, unspecified; R73.9 Hyperglycemia, unspecified
CPT/HCPCS: 36415; 36600; 71045; 80053; 82805; 83605; 85025; 85379; 87040; 87633; 93005; 93010; 93971; 94760; 94762; 96365; 96375; 99285; 99291; 99292; A9270; J1100; J1650; J2405

== ENCOUNTER 2022-08-04 18:15 | Emergency (ER) | payer OTHER, SELFPAY ==
[2022-08-04 18:27] VITALS: BP 150/86; PULSE 79; RESP 18; TEMP 36.9; O2SAT 99; BMI 44.2
[2022-08-04 19:00] LABS: Add Manual Diff / Slide Review NO; Basophils Absolute Auto 100 /uL (0-100); Basophils Percent Auto 0.7 % (0-2); Eosinophils Absolute Auto 200 /uL (0-450); Hematocrit 38.9 % (36-46); Hemoglobin 13.5 g/dL (12.0-16.0); Lymphocytes Absolute Auto 2200 /uL (1100-4500); Lymphocytes Percent Auto 25.1 % (25-40); Mean Corpuscular HGB Conc 34.7 % (30-36); Mean Corpuscular Hemoglobin 29.6 PG (26-34); Mean Corpuscular Volume 85.2 fL (80-100); Monocytes Absolute Auto 700 /uL (0-900); Monocytes Percent Auto 8.4 % (3-14); Neutrophils Absolute Auto 5500 /uL (1500-7000); Neutrophils Percent Auto 63.8 % (50-75); Platelet Count 405 X10^3/uL (150-400); Red Blood Cell Count 4.57 X10^6/uL (4.0-5.2); White Blood Cell Count 8.6 X10^3/uL (4.5-11.0)
[2022-08-04 19:19] LABS: Alanine Aminotransferase 28 IU/L (<35); Albumin 4.1 g/dL (3.5-5.0); Albumin Globulin Ratio 1.1 (1.0-2.8); Alkaline Phosphatase 188 U/L (38-126); Aspartate Aminotransferase 29 IU/L (14-36); BUN Creatinine Ratio 27.3 (6-22); Bilirubin Total 0.4 mg/dL (0.2-1.3); Blood Urea Nitrogen 15 mg/dL (7-17); Calcium 8.4 mg/dL (8.4-10.2); Carbon Dioxide 27 mmol/L (22-32); Chloride 104 mmol/L (98-107); Estimated Glomerular Filt Rate > 60 mL/min (>60); Globulin 3.7 g/dL (1.7-4.1); Glucose 92 mg/dL (70-100); HEMOLYSIS < 15 (0-50); Sodium 138 mmol/L (137-145); Total Protein 7.8 g/dL (6.3-8.2)
[2022-08-04 19:22] LABS: Bacteria Urine Few (2-10); RBC Urine 0-1/HPF (0-5/HPF); Squamous Epithelial Cell Urine 0-1 /HPF (0-5/HPF); WBC Urine 0-1/HPF (0-5/HPF)
[2022-08-04 19:23] LABS: Culture Indicated Urine Cult Not Indicated
--- NOTE | 2022-08-04 20:31 | DI.CT.S_ITS ---
PROCEDURE: CT KIDNEY URETER BLADDER (KUB) INDICATIONS: severe R flank pain TECHNIQUE: Axial sections were acquired from the lung bases to the pubic symphysis. Coronal and sagittal reformats were performed. For radiation dose reduction, the following was used: automated exposure control, adjustment of mA and/or kV according to patient size. COMPARISON: None. FINDINGS: Image quality: Excellent. Lung bases: There is minimal atelectasis. Heart: Heart is normal in size. URINARY: Right Kidney and Ureter: There is a punctate nonobstructing right renal stone. No hydronephrosis. No hydroureter. Left Kidney and Ureter: No stones or hydronephrosis. No hydroureter. Bladder: Normal wall thickness. No stones. ABDOMEN: Liver: Noncontrast evaluation of the liver demonstrates no discrete mass. Gallbladder: Within normal limits without calcified gallstones. Biliary ducts: No biliary ductal dilatation. Pancreas: Unremarkable. Spleen: Normal in size. Adrenal Glands: No adrenal nodules. Stomach and Bowel: Stomach, small bowel loops, and colon are normal in caliber and wall thickness. Appendix appears within normal limits. There is colonic diverticulosis without acute diverticulitis. Peritoneum: No abnormal intraperitoneal fluid. No free air. Ventral Wall: No hernia. Abdominal Nodes: No retroperitoneal or mesenteric adenopathy by size criteria. Vessels: Aorta and inferior vena cava are normal in size. PELVIS: Pelvic Organs: Unremarkable. Pelvic Nodes: No enlarged lymph nodes. Miscellaneous: No inguinal hernias identified. Bones: Visualized osseous structures demonstrate no suspicious focal lesions. IMPRESSION: 1. Punctate nonobstructing right renal stone without evidence of obstructive uropathy. 2. No evidence of appendicitis. Dictated by: Seth Warner M.D. on 08/04/2022 at 21:45 Approved by: Seth Warner M.D. on 08/04/2022 at 21:48
--- NOTE | 2022-08-04 20:32 | ED_ITS ---
HPI - Abdominal Pain General Chief Complaint: Urogenital-Female Stated Complaint: ABD pain Time Seen by Provider: 08/04/22 18:34 Source: patient Mode of arrival: Wheelchair History of Present Illness HPI narrative: 51-year-old female nonsmoker with history of ovarian cyst presents with in the chief complaint of severe right flank that has been present for the past few days. She states it is largely present but there are some episodes when it intensifies significantly. Typically it will worsen with palpation, deep breaths or motion but there have been episodes where worsens without any obvious provocation as well. It is had some radiation around her right side. She is had nausea but denies any vomiting. She denies any chest pain or shortness of breath. She is not dizzy nor weak or lightheaded. She denies any constipation or diarrhea. She has no dysuria, frequency or urgency. Related Data Home Medications Medication Instructions Recorded Confirmed oxycodone 5 mg capsule 5 mg PO Q6H PRN pain 12/01/21 01/13/22 cetirizine 10 mg tablet (Zyrtec) 10 mg PO DAILY 01/13/22 01/13/22 Previous Rx's Medication Instructions Recorded acetaminophen 325 mg tablet 650 mg PO Q6HR PRN Fever/Mild Pain 01/16/22 (1-3) #30 tabs albuterol sulfate 90 mcg/actuation 1 puff INH RTQ6HR PRN Shortness Of 01/16/22 aerosol inhaler (Ventolin HFA) Breath #1 g dexamethasone 6 mg tablet 6 mg PO DAILY #7 tabs 01/16/22 guaifenesin 600 mg tablet, 600 mg PO Q12HR PRN Cough #30 tabs 01/16/22 extended release 12 hr (Mucus Relief ER) hydrocodone 5 mg-acetaminophen 325 1 tab PO Q4-6H PRN pain #10 tabs 08/05/22 mg tablet ketorolac 10 mg tablet 10 mg PO Q6H PRN pain #14 tabs 08/05/22 Allergies Allergy/AdvReac Type Severity Reaction Status Date / Time prochlorperazine Allergy Severe cardiac Verified 08/04/22 18:34 [From Compazine] arrest venom-honey bee Allergy Severe Anaphylaxis Verified 08/04/22 18:34 Review of Systems Review of Systems Narrative: GENERAL: Denies chills, fatigue, malaise, fever, sweats. HEENT: Denies sinus pain, ear pain, sore throat, difficulty swallowing, dizziness. RESPIRATORY: Denies dyspnea, cough, wheezing, hemoptysis, sputum. CARDIOVASCULAR: See HPI GASTROINTESTINAL: See HPI : Denies dysuria, frequency, incontinence, hematuria, urinary retention. MUSCULOSKELETAL: denies weakness, joint pain, or bony pain SKIN: Denies rash, skin lesions, or other NEUROLOGIC: Denies weakness, headache, numbness, change in speech, confusion, seizures, incoordination. PSYCHIATRIC: No concerning psychosocial issues. 12 point review of systems is negative except for those stated above Patient History Surgical History No history of previous surgery Family History Mother Hypertension Other Diabetes mellitus Social History household members: spouse Smoking Status: Never smoker Smoking Status: Never smoker alcohol intake frequency: holidays/special occasions only Substance Use Type: does not use Exam Narrative Exam Narrative: GENERAL: [51] year old patient appears stated age. Well-developed patient, in obvious pain, rubbing her right flank, tearful HEAD: Atraumatic. Normocephalic. EYES: Pupils equal round and reactive. Extraocular motions intact. No scleral icterus. No injection or drainage. ENT: Nose without bleeding, purulent drainage. Throat without erythema, tonsillar hypertrophy or exudate. Airway patent. NECK: Trachea midline. Non tender CARDIOVASCULAR: Regular rate and rhythm without murmurs, gallops, or rubs. RESPIRATORY: Clear to auscultation. Breath sounds equal bilaterally. No wheezes, rales, or rhonchi. GASTROINTESTINAL: Abdomen soft, non-tender, nondistended. No pain in epigastrium or right upper quadrant, negative Balderrama's EXTREMITIES: No edema or joint tenderness. BACK: Severe right CVA tenderness NEURO: AOx3. SKIN: No rash or erythema of visible areas Initial Vital Signs Initial Vital Signs: Vital Signs Temperature 98.5 F 08/04/22 18:27 Pulse Rate 79 08/04/22 18:27 Respiratory Rate 18 08/04/22 18:27 Blood Pressure 150/86 H 08/04/22 18:27 Pulse Oximetry 99 08/04/22 18:27 Oxygen Delivery Method Room Air 08/04/22 18:27 Course Orders Ordered: ED Orders 08/04/22 18:42 CMP [Comprehensive Metabolic Panel] Stat Complete Blood Count AUTO DIFF Stat 08/04/22 18:48 Urine Microscopic Stat 08/04/22 20:31 CT kidney ureter bladder (KUB) Stat 08/04/22 22:12 US abdomen limited Stat Discontinued Medications Hydrocodone Bitart/Acetaminophen (Hydrocodone/Acet 5/325 Prepack) 1 bottle MISC SEEINSTR ONE Stop: 08/05/22 00:05 Sodium Chloride (Normal Saline 0.9%) 1,000 mls @ 1,000 mls/hr IV BOLUS ONE Stop: 08/04/22 21:30 Last Infusion: 08/04/22 23:00 Dose: 0 mls/hr Documented By: Admin: 08/04/22 21:01 Dose: 1,000 mls/hr Documented By: BELINDA Ketorolac Tromethamine (Ketorolac 30 Mg/Ml Vial) 15 mg IV NOW ONE Stop: 08/04/22 20:32 Last Admin: 08/04/22 21:01 Dose: 15 mg Documented By: BELINDA Ondansetron HCl (Ondansetron 4 Mg Odt Prepack) 1 bottle MISC SEEINSTR ONE Stop: 08/05/22 00:05 Vital Signs Vital signs: Vital Signs - 8 hr 08/04/22 18:27 Temperature 98.5 F Pulse Rate 79 Respiratory Rate 18 Blood Pressure 150/86 H Pulse Oximetry 99 Oxygen Delivery Method Room Air MDM - Abdominal Pain Lab Data 08/04/22 18:42 08/04/22 18:42 Labs: Lab Results 08/04/22 08/04/22 08/04/22 Range/Units 18:42 18:42 18:48 WBC 8.6 (4.5-11.0) X10^3/uL RBC 4.57 (4.0-5.2) X10^6/uL Hgb 13.5 (12.0-16.0) g/dL Hct 38.9 (36-46) % MCV 85.2 (80-100) fL MCH 29.6 (26-34) PG MCHC 34.7 (30-36) % RDW 13.0 (11.6-14.8) % Plt Count 405 H (150-400) X10^3/uL Neut % (Auto) 63.8 (50-75) % Lymph % (Auto) 25.1 (25-40) % [place] % (Auto) 8.4 (3-14) % Eos % (Auto) 2.0 (2-4) % Baso % (Auto) 0.7 (0-2) % Neut # (Auto) 5500 (6596-3080) /uL Lymph # (Auto) 2200 (4467-8559) /uL [place] # (Auto) 700 (0-900) /uL Eos # (Auto) 200 (0-450) /uL Baso # (Auto) 100 (0-100) /uL Sodium 138 (137-145) mmol/L Potassium 4.0 (3.4-5.1) mmol/L Chloride 104 (98-107) mmol/L Carbon Dioxide 27 (22-32) mmol/L BUN 15 (7-17) mg/dL Creatinine 0.55 (0.52-1.04) mg/dL Estimated GFR > 60 (>60) mL/min BUN/Creatinine Ratio 27.3 H (6-22) Glucose 92 (70-100) mg/dL Calcium 8.4 (8.4-10.2) mg/dL Total Bilirubin 0.4 (0.2-1.3) mg/dL AST 29 (14-36) IU/L ALT 28 (<35) IU/L Alkaline Phosphatase 188 H (38-126) U/L Total Protein 7.8 (6.3-8.2) g/dL Albumin 4.1 (3.5-5.0) g/dL Globulin 3.7 (1.7-4.1) g/dL Albumin/Globulin Ratio 1.1 (1.0-2.8) Urine RBC 0-1/hpf (0-5/HPF) Urine WBC 0-1/hpf (0-5/HPF) Ur Squamous Epith Cells 0-1 /hpf (0-5/HPF) Urine Bacteria Few (2-10) H (None) Ur Culture Indicated? Cult not indicated Point of care testing: Urine Dip Bedside Urine Glucose Negative Bedside Urine Bilirubin - Negative Bedside Urine Ketone - Negative Urine Specific [place] 1.020 Bedside Urine Occult Blood +/- Bedside Urine pH 6.0 Bedside Urine Protein - Negative Bedside Urine Urobilinogen +/- 1mg Bedside Urine Nitrite - Negative Bedside Urine Leukocytes - Negative Esterase Imaging Data CT scan - abdomen/pelvis: Radiologist's Impression: [address] [address] [address] Scan Report Signed Patient: Leighann Prabhakar MR#: [id number] : 1970 Acct:[id number] Age/Sex: 51 / F Date of Service: 08/04/22 Loc: ED Accession Number: [id number] ?? Procedure: CT kidney ureter bladder (KUB) Ordering Provider: Gilmer Huddleston D.O. PROCEDURE:? CT KIDNEY URETER BLADDER (KUB) ? INDICATIONS:? severe R flank pain ? TECHNIQUE:? Axial sections were acquired from the lung bases to the pubic symphysis.? Coronal and sagittal reformats were performed.? For radiation dose reduction, the following was used: ?automated exposure control, adjustment of mA and/or kV according to patient size.? ? COMPARISON:? None. ? FINDINGS:? Image quality:? Excellent.? ? Lung bases:? There is minimal atelectasis.? ? Heart:? Heart is normal in size. ? URINARY: Right Kidney and Ureter: ? There is a punctate nonobstructing right renal stone.? No hydronephrosis.? No hydroureter.? ? Left Kidney and Ureter: ? No stones or hydronephrosis.? No hydroureter. ? Bladder:? Normal wall thickness. No stones. ? ? ? ABDOMEN: Liver:? Noncontrast evaluation of the liver demonstrates no discrete? mass. Gallbladder:? Within normal limits without calcified gallstones.? ? Biliary ducts:? No biliary ductal dilatation.? ? Pancreas:? Unremarkable.? ? Spleen:? Normal in size.? ? Adrenal Glands:? No adrenal nodules.? ? ? Stomach and Bowel:? Stomach, small bowel loops, and colon are normal in caliber and wall thickness.? Appendix appears within normal limits.? There is colonic diverticulosis without acute diverticulitis.? Peritoneum:? No abnormal intraperitoneal fluid.? No free air.? ? Ventral Wall: ? No hernia.? Abdominal Nodes:? No retroperitoneal or mesenteric adenopathy by size criteria.? Vessels:? Aorta and inferior vena cava are normal in size.? ? PELVIS: Pelvic Organs:? Unremarkable.? ? Pelvic Nodes: No enlarged lymph nodes.? Miscellaneous: No inguinal hernias identified. ? ? ? Bones:? Visualized osseous structures demonstrate no suspicious focal lesions. IMPRESSION:? ? ? 1.? Punctate nonobstructing right renal stone without evidence of obstructive uropathy. ? 2. No evidence of appendicitis. ? Dictated by: Seth Warner M.D. on 08/04/2022 at 21:45 ? ? Approved by: Seht Warner M.D. on 08/04/2022 at 21:48 ? MDM Narrative Medical decision making narrative: CC: 51-year-old female presents with right flank pain and report of abnormal labs at her primary care office Complicating co-morbidities: Age Data collected from: Patient Medical records reviewed: Prior notes reviewed in our EMR Differential considered, but not limited to: Kidney stone, pyelonephritis, gallbladder disease, bowel obstruction, musculoskeletal versus other Exam documented above, pertinent findings include: Right flank pain on exam, abdomen soft, heart rate regular, lungs clear Lab Test results independently reviewed as above. Pertinent findings: No leukocytosis or left shift H&H normal, electrolytes and renal function within normal limits, liver function including bilirubin within normal limits, alk phos slightly increased at 188 Independently reviewed EKG as above Imaging studies independently reviewed: CT demonstrates no ureteral stone, though there is a nonobstructing stone of the right kidney, no bowel obstruction or other abnormal finding. Ultrasound without evidence of cholecystitis or cholelithiasis Treatments: Saline, Toradol, hydrocodone prepack Re-evaluations: [id number] improvement Discussion: Patient presents with right flank pain and multiple diagnoses considered as noted above. Her urine shows no blood or leukocytes, this was obtained and tested on 2 occasions and no abnormal findings that are consistent with what her primary office had seen were noted. Labs are reassuring and there is no significant abnormality, the slight bump in her alk phos is nondiagnostic and the cause is unclear. Imaging is reassuring and no evidence of ureteral stone, obstruction, gallbladder disease. Patient's pain is controlled she is tolerating orals and appropriate for discharge Disposition: see below, along with detailed discharge instructions that have been reviewed with patient as well as indications for ED re-evaluation and additional outpatient follow up Discharge Plan Departure Patient Disposition: Home Clinical Impression: Acute flank pain Instructions: DI for Flank Pain Activity Restrictions/Additional Instructions: *You have been diagnosed with [abdominal pain] * As we discussed your history and physical exam as well as labs and imaging are very reassuring. There is no evidence of any severe diagnoses that would require a specific or immediate intervention. *What to do: *Please continue to take your regular medications as directed. [x ] New medication prescriptions sent to your pharmacy: [[facility] ] *Please follow up with your primary care provider in 2-3 days, call for an appointment. Let them know you were seen in the Emergency Department and that we ask that you be seen in follow up. We will electronically transmit a record of today's note if your PCP is in our system *Please consider a clear liquid diet for the next 24-48 hours and then slowly advance to regular as tolerated. Also, try to avoid alcohol, nicotine, caffeine, spicy, acidic or fatty foods as this may worsen your symptoms *If you do not have a primary care provider please contact the [facility] Resource line at [phone]. They will ask some questions about your medical history and help get you set up with a doctor in the community. *Return to Emergency Department if you should have any new, worsening or concerning symptoms, such as [fever greater than 101 F, shaking chills, worsening pain, persistent vomiting or other bothersome symptoms] Prescriptions: New hydrocodone-acetaminophen 5-325 mg tablet 1 tab PO Q4-6H PRN (Reason: pain) Qty: 10 0RF ketorolac 10 mg tablet 10 mg PO Q6H PRN (Reason: pain) Qty: 14 0RF No Action oxycodone 5 mg capsule 5 mg PO Q6H PRN (Reason: pain) cetirizine [Zyrtec] 10 mg Tablet 10 mg PO DAILY acetaminophen 325 mg Tablet 650 mg PO Q6HR PRN (Reason: Fever/Mild Pain (1-3)) Qty: 30 0RF albuterol sulfate [Ventolin HFA] 90 mcg/actuation Hfa Aerosol Inhaler 1 puff INH RTQ6HR PRN (Reason: Shortness Of Breath) Qty: 1 0RF guaifenesin [Mucus Relief ER] 600 mg Tablet Extended Release 12hr 600 mg PO Q12HR PRN (Reason: Cough) Qty: 30 0RF dexamethasone 6 mg tablet 6 mg PO DAILY Qty: 7 0RF Referrals: ProviderRizwana [Primary Care Provider] - Stand Alone Forms: Patient Portal/API
[2022-08-04] MEDS: SODIUM CHLORIDE 0.9% 1,000 ML 1000 ML IV (21:01)
[2022-08-04] MEDS: KETOROLAC 30 MG/ML VIAL 15 MG IV (21:01)
--- NOTE | 2022-08-04 22:12 | DI.US.S_ITS ---
PROCEDURE: US ABDOMEN LIMITED INDICATIONS: RIGHT FLANK PAIN; ELEVATED BILIRUBIN TECHNIQUE: Real-time focused scanning was performed of the abdomen, with image documentation. COMPARISON: [facility] [place], CT, CT KIDNEY URETER BLADDER (KUB), 08/04/2022, 20:43. FINDINGS: The liver demonstrates increased no focal mass lesions. There is increased parenchymal echogenicity compatible with fatty infiltration. The gallbladder demonstrates no stones, wall thickening, or pericholecystic fluid. No intra or extrahepatic biliary ductal dilatation. Visualized pancreas appears unremarkable sonographically. Right kidney measures 9.7 cm. No hydronephrosis. IMPRESSION: 1. Limited study demonstrates no evidence of obstructive uropathy. Dictated by: Seth Warner M.D. on 08/05/2022 at 0:24 Approved by: Seth Warner M.D. on 08/05/2022 at 0:26
[2022-08-04 22:29] VITALS: PULSE 77; O2SAT 94
[2022-08-04 22:30] VITALS: BP 135/83; PULSE 74; O2SAT 100
[2022-08-04 23:00] VITALS: PULSE 77; O2SAT 98
[2022-08-04 23:30] VITALS: PULSE 77; O2SAT 98
[2022-08-05] MEDS: HYDROCODONE/ACET 5/325 PREPACK 1 BOTTLE MISC (00:47)
[2022-08-05] MEDS: ONDANSETRON 4 MG ODT PREPACK 1 BOTTLE MISC (00:47)
[2022-08-05 01:07] VITALS: BP 132/81; PULSE 81; RESP 16; TEMP 36.6; O2SAT 100
== END 2022-08-05 01:09 | disposition home or self-care (01) ==
PROVIDERS: Emergency Provider Emergency Medicine
DX: R10.9 Unspecified abdominal pain (principal)
CPT/HCPCS: 36415; 74176; 76705; 80053; 81003; 81015; 85025; 96361; 96374; 99284; J1885

== ENCOUNTER 2023-04-25 13:48 | Emergency (ER) | payer OTHER, SELFPAY ==
[2023-04-25 14:02] VITALS: BP 163/87; PULSE 88; RESP 20; TEMP 36.9; O2SAT 100; BMI 42.5
[2023-04-25] MEDS: OXYCODONE/ACETAMINOPHEN 5/325 TABLET 2 TAB PO (14:19)
[2023-04-25] MEDS: CYCLOBENZAPRINE 10 MG TABLET PO (15:37)
[2023-04-25] MEDS: KETOROLAC 30 MG/ML VIAL IM (16:21)
--- NOTE | 2023-04-25 16:28 | DI.RAD.S_ITS ---
PROCEDURE: XR THORACIC SPINE 3V INDICATIONS: back pain TECHNIQUE: 3 views of the thoracic spine were acquired. COMPARISON: None. FINDINGS: Bones: No fractures or dislocations. No suspicious bony lesions. 12 pairs of ribs are noted, and appear intact where visualized. Soft tissues: No paravertebral stripe thickening. IMPRESSION: No acute bony abnormality. Dictated by: David Gray M.D. on 04/25/2023 at 17:03 Approved by: David Gray M.D. on 04/25/2023 at 17:03
--- NOTE | 2023-04-25 16:28 | DI.RAD.S_ITS ---
PROCEDURE: XR LUMBAR SPINE 2-3V INDICATIONS: low back pain TECHNIQUE: 3 views of the lumbar spine were acquired. COMPARISON: None. FINDINGS: Bones: 5 [id number] vertebrae are present. There is normal bony alignment. No vertebral body compression fractures. No suspicious bony lesions. Mild disc height loss at L5-S1. Soft tissues: Overlying bowel gas pattern is normal. No suspicious soft tissue calcifications. IMPRESSION: No acute bony abnormality. Dictated by: David Gray M.D. on 04/25/2023 at 17:02 Approved by: David Gray M.D. on 04/25/2023 at 17:03
[2023-04-25 17:59] VITALS: BP 132/68; PULSE 55; RESP 18; O2SAT 100
--- NOTE | 2023-04-25 18:49 | ED_ITS ---
HPI - Fall <Rebekah Gant PA-C - Last Filed: 04/26/23 11:17> General Chief Complaint: Fall Stated Complaint: BACK INJ Time Seen by Provider: 04/25/23 15:34 Source: patient Mode of arrival: Wheelchair History of Present Illness HPI Narrative: Patient is a 52-year-old female with a past medical history of asthma who presents with back pain. She was walking her disabled dog today when the dog got out of its harness and she abruptly bent to catch the dog from falling. She felt a painful pop in her back and fell to the ground, in the meantime landing on the ramp that goes into her RV. The ramp hit just below her ribs. She reports laying on the ground for 15 minutes before she was able to crawl and notify her . She came immediately to the emergency room. She has no history of back pain. Related Data Home Medications Medication Instructions Recorded Confirmed oxycodone 5 mg capsule 5 mg PO Q6H PRN pain 12/01/21 01/13/22 cetirizine 10 mg tablet (Zyrtec) 10 mg PO DAILY 01/13/22 01/13/22 Previous Rx's Medication Instructions Recorded acetaminophen 325 mg tablet 650 mg (2 x 325 mg) PO Q6HR PRN 01/16/22 Fever/Mild Pain (1-3) #30 tabs albuterol sulfate 90 mcg/actuation 1 puff INH RTQ6HR PRN Shortness Of 01/16/22 aerosol inhaler (Ventolin HFA) Breath #1 g dexamethasone 6 mg tablet 6 mg PO DAILY #7 tabs 01/16/22 guaifenesin 600 mg tablet, 600 mg PO Q12HR PRN Cough #30 tabs 01/16/22 extended release 12 hr (Mucus Relief ER) hydrocodone 5 mg-acetaminophen 325 1 tab PO Q4-6H PRN pain #10 tabs 08/05/22 mg tablet ketorolac 10 mg tablet 10 mg PO Q6H PRN pain #14 tabs 08/05/22 cyclobenzaprine 5 mg tablet 5 mg PO TID PRN muscle spasm #14 04/25/23 tabs hydrocodone 5 mg-acetaminophen 325 1 tab PO Q6H PRN pain #10 tabs 04/25/23 mg tablet Allergies Allergy/AdvReac Type Severity Reaction Status Date / Time prochlorperazine Allergy Severe cardiac Verified 08/04/22 18:34 [From Compazine] arrest venom-honey bee Allergy Severe Anaphylaxis Verified 08/04/22 18:34 Review of Systems <Rebekah Gant PA-C - Last Filed: 04/26/23 11:17> Review of Systems ROS Unobtainable: All systems reviewed & are unremarkable except as noted in HPI and below Patient History <Rebekah Gant PA-C - Last Filed: 04/26/23 11:17> Medical History (Updated 04/26/23 @ 11:11 by Rebekah Gant PA-C) Asthma Surgical History No history of previous surgery Family History Mother Hypertension Other Diabetes mellitus Social History household members: spouse Smoking Status: Never smoker Smoking Status: Never smoker alcohol intake frequency: holidays/special occasions only Substance Use Type: does not use Exam <Rebekah Gant PA-C - Last Filed: 04/26/23 11:17> Narrative Exam Narrative: GENERAL: 52 year old patient appears stated age. Well-developed patient, appears uncomfortable, tearful, writhing in pain. NEURO: AOx3. HEAD: Atraumatic. Normocephalic. EYES: Pupils equal round and reactive. Extraocular motions intact. No scleral icterus. No injection or drainage. ENT: Nose without bleeding or purulent drainage. Airway patent. NECK: Trachea midline. Non tender CARDIOVASCULAR: Regular rate and rhythm without murmurs, gallops, or rubs. RESPIRATORY: Clear to auscultation. Breath sounds equal bilaterally. No wheezes, rales, or rhonchi. GASTROINTESTINAL: Abdomen soft, nondistended. Mild tenderness to palpation over the epigastrium, no ecchymosis noted. EXTREMITIES: No edema or joint tenderness. Patient complains of numbness and tingling in her right upper extremity, strength is 5/5 in bilateral upper extremities. On initial exam, patient is weak in right lower extremity with 2/5 strength compared to 5/5 on the left. After pain medication and reassurance, strength is equal and 5/5 bilaterally. SPINE: Midline spinal tenderness from midthoracic down to low lumbar. No step- offs. Also with exquisite paraspinal tenderness bilaterally. SKIN: No rash or erythema of visible areas Initial Vital Signs Initial Vital Signs: Vital Signs Temperature 98.5 F 04/25/23 14:02 Pulse Rate 88 04/25/23 14:02 Respiratory Rate 20 04/25/23 14:02 Blood Pressure 163/87 H 04/25/23 14:02 Pulse Oximetry 100 04/25/23 14:02 Oxygen Delivery Method Room Air 04/25/23 14:02 <Yareli Robins DO - Last Filed: 04/26/23 17:42> Initial Vital Signs Initial Vital Signs: Vital Signs Temperature 98.5 F 04/25/23 14:02 Pulse Rate 88 04/25/23 14:02 Respiratory Rate 20 04/25/23 14:02 Blood Pressure 163/87 H 04/25/23 14:02 Pulse Oximetry 100 04/25/23 14:02 Oxygen Delivery Method Room Air 04/25/23 14:02 Course <Rebekah Gant PA-C - Last Filed: 04/26/23 11:17> Orders Ordered: Discontinued Medications Cyclobenzaprine HCl (Cyclobenzaprine 10 Mg Tablet) 10 mg PO NOW ONE Stop: 04/25/23 15:35 Last Admin: 04/25/23 15:37 Dose: 10 mg Documented By: BIANCA Ketorolac Tromethamine (Ketorolac 30 Mg/Ml Vial) 15 mg IV NOW ONE Stop: 04/25/23 15:48 Last Admin: 04/25/23 16:08 Dose: Not Given Documented By: RLS Ketorolac Tromethamine (Ketorolac 30 Mg/Ml Vial) 30 mg IM NOW ONE Stop: 04/25/23 16:09 Last Admin: 04/25/23 16:21 Dose: 30 mg Documented By: RLS Oxycodone/Acetaminophen (Oxycodone/Acetaminophen 5/325 Tablet) 2 tab PO NOW ONE Stop: 04/25/23 14:15 Last Admin: 04/25/23 14:19 Dose: 2 tab Documented By: BS Vital Signs Vital signs: Vital Signs - 8 hr 04/25/23 14:02 04/25/23 17:59 Temperature 98.5 F Pulse Rate 88 55 L Respiratory Rate 20 18 Blood Pressure 163/87 H 132/68 Pulse Oximetry 100 100 Oxygen Delivery Method Room Air Room Air <Yareli Robins DO - Last Filed: 04/26/23 17:42> Orders Ordered: Discontinued Medications Cyclobenzaprine HCl (Cyclobenzaprine 10 Mg Tablet) 10 mg PO NOW ONE Stop: 04/25/23 15:35 Last Admin: 04/25/23 15:37 Dose: 10 mg Documented By: MPO Ketorolac Tromethamine (Ketorolac 30 Mg/Ml Vial) 15 mg IV NOW ONE Stop: 04/25/23 15:48 Last Admin: 04/25/23 16:08 Dose: Not Given Documented By: RLS Ketorolac Tromethamine (Ketorolac 30 Mg/Ml Vial) 30 mg IM NOW ONE Stop: 04/25/23 16:09 Last Admin: 04/25/23 16:21 Dose: 30 mg Documented By: RLS Oxycodone/Acetaminophen (Oxycodone/Acetaminophen 5/325 Tablet) 2 tab PO NOW ONE Stop: 04/25/23 14:15 Last Admin: 04/25/23 14:19 Dose: 2 tab Documented By: BS Vital Signs Vital signs: Vital Signs - 8 hr 04/25/23 14:02 04/25/23 17:59 Temperature 98.5 F Pulse Rate 88 55 L Respiratory Rate 20 18 Blood Pressure 163/87 H 132/68 Pulse Oximetry 100 100 Oxygen Delivery Method Room Air Room Air MDM - Fall <Rebekah Gant PA-C - Last Filed: 04/26/23 11:17> Imaging Data spine xrays: Radiologist's Impression: PROCEDURE: XR THORACIC SPINE 3V INDICATIONS: back pain TECHNIQUE: 3 views of the thoracic spine were acquired. COMPARISON: None. FINDINGS: Bones: No fractures or dislocations. No suspicious bony lesions. 12 pairs of ribs are noted, and appear intact where visualized. Soft tissues: No paravertebral stripe thickening. IMPRESSION: No acute bony abnormality. Dictated by: David Gray M.D. on 04/25/2023 at 17:03 Approved by: David Gray M.D. on 04/25/2023 at 17:03 PROCEDURE: XR LUMBAR SPINE 2-3V INDICATIONS: low back pain TECHNIQUE: 3 views of the lumbar spine were acquired. COMPARISON: None. FINDINGS: Bones: 5 [id number] vertebrae are present. There is normal bony alignment. No vertebral body compression fractures. No suspicious bony lesions. Mild disc height loss at L5-S1. Soft tissues: Overlying bowel gas pattern is normal. No suspicious soft tissue calcifications. IMPRESSION: No acute bony abnormality. Dictated by: David Gray M.D. on 04/25/2023 at 17:02 Approved by: David Gray M.D. on 04/25/2023 at 17:03 [facility] Narrative Medical decision making narrative: Multiple etiologies for patient's symptoms considered including, but not limited to: Spinal fracture, muscle spasm, spinal cord injury Patient initially very labile, nearly hysterical. Difficult to get a good exam. After oxycodone, muscle relaxers, IM Toradol, she is able to relax and participate more fully in the exam. She has equal 5/5 strength in bilateral uppers and lowers. She is able to ambulate. Although she complains of midline tenderness in her spine, after being told that there is no evidence of fracture on her x-rays she is much relieved and able to tolerate re-examination of her spine. Discussed supportive care of low back injuries to include rest, stretching, ice, NSAIDs, physical therapy. Described expected course for recovery which is 4-6 weeks. Stretching handout provided. I will prescribe muscle relaxers and a small course of pain medications. Emphasized the importance of staying active, even if it is just to walk around the block. I placed a referral to physical therapy and encouraged her to follow up with her primary care. Reviewed return precautions including loss of control of bowel or bladder or saddle anesthesia. Patient's symptoms improved over duration of stay with above-stated therapies. Findings and discharge diagnosis discussed with patient/family followed by verbalization of understanding Return precautions discussed with patient/family whom verbalize understanding of diagnosis and plan Discharge Plan Departure Patient Disposition: Home Clinical Impression: Low back pain radiating down leg Instructions: DI for Low Back Pain Activity Restrictions/Additional Instructions: *You have been diagnosed with musculoskeletal low back pain. There is no evidence of fracture on your x-rays. As we discussed, it is very important to stay active low recovering from low back pain. I advise you to use ice for 15 minutes every 1-2 hours for the 1st 72 hours and then you can switch to heat. I have given you a handout with stretches and basic management. I will place a referral to physical therapy. I have prescribed 2 medications 1 is a muscle relaxer medication in the other is an opiate pain medicine. Both medicines can make you sleepy and should not be combined with other sedative medications or alcohol. You should not drive or operate heavy machinery while taking these medications. *What to do: *Please continue to take your regular medications as directed. [x] New medication prescriptions sent to your pharmacy: [facility] [ ] New medication written as a paper prescription [ ] No new medications given *Please follow up with your primary care provider in 2-3 days, call for an appointment. Let them know you were seen in the Emergency Department and that we ask that you be seen in follow up. We will electronically transmit a record of today's note if your PCP is in our system *If you do not have a primary care provider please contact the [facility] Resource line at [phone]. They will ask some questions about your medical history and help get you set up with a doctor in the community. *Return to Emergency Department if you should have any new, worsening or concerning symptoms, such as [fever greater than 101 F, shaking chills, worsening pain, persistent vomiting or other concerning symptoms]. Prescriptions: New cyclobenzaprine 5 mg tablet 5 mg PO TID PRN (Reason: muscle spasm) Qty: 14 0RF hydrocodone-acetaminophen 5-325 mg tablet 1 tab PO Q6H PRN (Reason: pain) Qty: 10 0RF No Action oxycodone 5 mg capsule 5 mg PO Q6H PRN (Reason: pain) cetirizine [Zyrtec] 10 mg Tablet 10 mg PO DAILY acetaminophen 325 mg Tablet 650 mg PO Q6HR PRN (Reason: Fever/Mild Pain (1-3)) Qty: 30 0RF albuterol sulfate [Ventolin HFA] 90 mcg/actuation Hfa Aerosol Inhaler 1 puff INH RTQ6HR PRN (Reason: Shortness Of Breath) Qty: 1 0RF guaifenesin [Mucus Relief ER] 600 mg Tablet Extended Release 12hr 600 mg PO Q12HR PRN (Reason: Cough) Qty: 30 0RF dexamethasone 6 mg tablet 6 mg PO DAILY Qty: 7 0RF hydrocodone-acetaminophen 5-325 mg tablet 1 tab PO Q4-6H PRN (Reason: pain) Qty: 10 0RF ketorolac 10 mg tablet 10 mg PO Q6H PRN (Reason: pain) Qty: 14 0RF Referrals: [facility] [Provider Group] Provider,Rizwana MURPHY [Primary Care Provider] - Stand Alone Forms: Patient Portal/API ED Sign-out <Yareli Robins DO - Last Filed: 04/26/23 17:42> Cosign ED Attending Rickie Attestation: I was immediately available in the department for consultation.
== END 2023-04-25 18:14 | disposition home or self-care (01) ==
PROVIDERS: Emergency Provider Physician Assistant
DX: M54.50 Low back pain, unspecified (principal)
CPT/HCPCS: 72072; 72100; 96372; 99283; 99284; J1885

== ENCOUNTER 2023-07-28 13:02 | Emergency (ER) | payer OTHER, SELFPAY ==
[2023-07-28 13:17] VITALS: BP 144/79; PULSE 74; RESP 22; TEMP 36.6; O2SAT 100; BMI 47.8
[2023-07-28 13:52] LABS: Add Manual Diff / Slide Review NO; Basophils Absolute Auto 100 /uL (0-100); Basophils Percent Auto 0.7 % (0-2); Eosinophils Absolute Auto 200 /uL (0-450); Eosinophils Percent Auto 1.9 % (2-4); Hematocrit 41.4 % (36-46); Hemoglobin 14.2 g/dL (12.0-16.0); Lymphocytes Absolute Auto 2000 /uL (1100-4500); Lymphocytes Percent Auto 23.6 % (25-40); Mean Corpuscular HGB Conc 34.3 % (30-36); Mean Corpuscular Hemoglobin 29.8 PG (26-34); Mean Corpuscular Volume 86.7 fL (80-100); Monocytes Absolute Auto 500 /uL (0-900); Monocytes Percent Auto 6.2 % (3-14); Neutrophils Absolute Auto 5900 /uL (1500-7000); Neutrophils Percent Auto 67.6 % (50-75); Platelet Count 436 X10^3/uL (150-400); Red Blood Cell Count 4.78 X10^6/uL (4.0-5.2); Red Cell Distribution Width 13.1 % (11.6-14.8); White Blood Cell Count 8.7 X10^3/uL (4.5-11.0)
[2023-07-28] MEDS: ONDANSETRON 4 MG/2 ML INJ IV (13:53)
[2023-07-28 13:54] LABS: Alanine Aminotransferase 27 IU/L (<35); Albumin 4.3 g/dL (3.5-5.0); Albumin Globulin Ratio 1.1 (1.0-2.8); Alkaline Phosphatase 150 U/L (38-126); Aspartate Aminotransferase 31 IU/L (14-36); BUN Creatinine Ratio 19.3 (6-22); Bilirubin Total 0.5 mg/dL (0.2-1.3); Blood Urea Nitrogen 11 mg/dL (7-17); Calcium 8.7 mg/dL (8.4-10.2); Carbon Dioxide 26 mmol/L (22-32); Chloride 104 mmol/L (98-107); Estimated Glomerular Filt Rate > 60 mL/min (>60); Globulin 3.8 g/dL (1.7-4.1); Glucose 93 mg/dL (70-100); HEMOLYSIS < 15 (0-50); Potassium 3.7 mmol/L (3.4-5.1); Sodium 139 mmol/L (137-145); Total Protein 8.1 g/dL (6.3-8.2)
[2023-07-28 13:55] LABS: Lipase 76 U/L (23-300)
[2023-07-28 14:03] LABS: Urine Volume 10mL (spun)
[2023-07-28 14:09] LABS: Bacteria Urine None Seen; Culture Indicated Urine Cult Not Indicated; RBC Urine 1-5/HPF (0-5/HPF); Squamous Epithelial Cell Urine 0-1 /HPF (0-5/HPF); WBC Urine None Seen (0-5/HPF)
--- NOTE | 2023-07-28 14:34 | DI.US.S_ITS ---
PROCEDURE: US ABDOMEN LIMITED INDICATIONS: ruq TECHNIQUE: Real-time focused scanning was performed of the abdomen, with image documentation. COMPARISON: [facility], [place], US ABDOMEN LIMITED, 08/04/2022, 23:12. FINDINGS: There is mild increased echotexture through the liver consistent with mild fatty infiltration. The main portal vein direction of blood flow is normal. The gallbladder is free of inflammation or stones. The adjacent bile ducts are normal in caliber. The pancreas visualized is normal but portions of the pancreatic tail were poorly seen due to bowel gas. IMPRESSION: Somewhat limited evaluation due to prominent overlying bowel gas but no acute disease is found. Suspect mild fatty infiltration within the liver which is not enlarged. Direction of blood flow within the portal vein is normal. Dictated by: Joce Singer M.D. on 07/28/2023 at 15:54 Approved by: Joce Singer M.D. on 07/28/2023 at 15:55
[2023-07-28] MEDS: KETOROLAC 30 MG/ML VIAL 15 MG IV (14:43)
--- NOTE | 2023-07-28 15:13 | ED.ABDPAIN ---
HPI - Abdominal Pain General Chief Complaint: Abdominal Pain Stated Complaint[facility] Time Seen by Provider: 07/28/23 14:34 Source: patient Mode of arrival: Ambulatory History of Present Illness HPI narrative: Patient 52-year-old female who presents today with abdominal pain and diarrhea. She reports that he has had diarrhea ongoing for the last 3-4 days. No nausea or vomiting. She reports that every time she eats, it goes right through her. She denies feeling dizzy or lightheaded. She has no chest pain. She has been able to drink fluid. Due to a walk-in clinic today who press on her abdomen and ever since then has been having severe right upper quadrant pain. Prior to that she was having some abdominal cramping diarrhea but now the pain will not stop. It comes and goes in waves. Reports that maybe she was having some back pain as well. Related Data Home Medications Medication Instructions Recorded Confirmed oxycodone 5 mg capsule 5 mg PO Q6H PRN pain 12/01/21 01/13/22 cetirizine 10 mg tablet (Zyrtec) 10 mg PO DAILY 01/13/22 01/13/22 Previous Rx's Medication Instructions Recorded acetaminophen 325 mg tablet 650 mg (2 x 325 mg) PO Q6HR PRN 01/16/22 Fever/Mild Pain (1-3) #30 tabs albuterol sulfate 90 mcg/actuation 1 puff INH RTQ6HR PRN Shortness Of 01/16/22 aerosol inhaler (Ventolin HFA) Breath #1 g dexamethasone 6 mg tablet 6 mg PO DAILY #7 tabs 01/16/22 guaifenesin 600 mg tablet, 600 mg PO Q12HR PRN Cough #30 tabs 01/16/22 extended release 12 hr (Mucus Relief ER) hydrocodone 5 mg-acetaminophen 325 1 tab PO Q4-6H PRN pain #10 tabs 08/05/22 mg tablet ketorolac 10 mg tablet 10 mg PO Q6H PRN pain #14 tabs 08/05/22 cyclobenzaprine 5 mg tablet 5 mg PO TID PRN muscle spasm #14 04/25/23 tabs hydrocodone 5 mg-acetaminophen 325 1 tab PO Q6H PRN pain #10 tabs 04/25/23 mg tablet hydrocodone 5 mg-acetaminophen 325 1 tab PO Q6H PRN pain #10 tabs 07/28/23 mg tablet Allergies Allergy/AdvReac Type Severity Reaction Status Date / Time prochlorperazine Allergy Severe cardiac Verified 08/04/22 18:34 [From Compazine] arrest venom-honey bee Allergy Severe Anaphylaxis Verified 08/04/22 18:34 Patient History Medical History (Updated 07/28/23 @ 16:54 by Kaila Newsome DO) Asthma Surgical History No history of previous surgery Family History Mother Hypertension Other Diabetes mellitus Social History household members: spouse Smoking Status: Never smoker Smoking Status: Never smoker alcohol intake frequency: holidays/special occasions only Substance Use Type: does not use Exam Initial Vital Signs Initial Vital Signs: Vital Signs Temperature 97.9 F 07/28/23 13:17 Pulse Rate 74 07/28/23 13:17 Respiratory Rate 22 07/28/23 13:17 Blood Pressure 144/79 H 07/28/23 13:17 Pulse Oximetry 100 07/28/23 13:17 Oxygen Delivery Method Room Air 07/28/23 13:17 GENERAL: Alert pleasant well-appearing 52-year-old female and in no acute distress. HEENT: Head atraumatic,EOMI, pupils reactive, face symmetric, moist mucous membranes CARDIOVASCULAR: Regular rate and rhythm without murmurs, rubs or gallops. RESPIRATORY: Breath sounds equal bilaterally, no wheezes rales or rhonchi. ABDOMEN: Soft, nondistended tender right side both upper and lower mild Balderrama's sign EXTREMITIES: Normal range of motion, no clubbing or edema. Neurovascularly intact NEUROLOGICAL: Alert and oriented x4.Normal gait and speech. SKIN: Warm, dry, no laceration, no petechiae, no rashes or lesions. Course Orders Ordered: ED Orders 07/28/23 13:25 Urine Microscopic Stat 07/28/23 13:36 Complete Blood Count AUTO DIFF Stat Comprehensive Metabolic Panel Stat Lipase Stat Test Serum,Qual Stat 07/28/23 13:41 Urine Culture Stat 07/28/23 13:45 EKG-12 Lead Stat 07/28/23 14:34 US abdomen limited Stat 07/28/23 15:54 CT abdomen pelvis w con Stat Discontinued Medications Sodium Chloride (Normal Saline 0.9%) 1,000 mls @ 1,000 mls/hr IV BOLUS ONE Stop: 07/28/23 17:00 Last Infusion: 07/28/23 17:30 Dose: Infused Documented By: Admin: 07/28/23 16:06 Dose: 1,000 mls/hr Documented By: JOHANNY Ketorolac Tromethamine (Ketorolac 30 Mg/Ml Vial) 15 mg IV NOW ONE Stop: 07/28/23 14:35 Last Admin: 07/28/23 14:43 Dose: 15 mg Documented By: JOHANNY Morphine Sulfate (Morphine 4 Mg/Ml Inj) 4 mg IV NOW ONE Stop: 07/28/23 15:55 Last Admin: 07/28/23 16:06 Dose: 4 mg Documented By: JOHANNY Ondansetron HCl (Ondansetron 4 Mg/2 Ml Inj) 4 mg IV NOW PRN PRN Reason: Nausea And Vomiting Last Admin: 07/28/23 13:53 Dose: 4 mg Documented By: HAMZAH Ondansetron HCl (Ondansetron 4 Mg Odt) 4 mg PO NOW PRN PRN Reason: Nausea And Vomiting Vital Signs Vital signs: Vital Signs - 8 hr 07/28/23 13:17 07/28/23 16:45 07/28/23 16:59 Temperature 97.9 F Pulse Rate 74 59 L 59 L Respiratory Rate 22 16 Blood Pressure 144/79 H 137/80 Pulse Oximetry 100 100 100 Oxygen Delivery Method Room Air Room Air 07/28/23 17:00 07/28/23 17:35 Temperature 98.2 F Pulse Rate 59 L 63 Respiratory Rate 16 Blood Pressure 134/86 Pulse Oximetry 100 100 Oxygen Delivery Method Room Air MDM - Abdominal Pain Lab Data 07/28/23 13:36 07/28/23 13:36 Labs: Lab Results 07/28/23 07/28/23 Range/Units 13:25 13:36 WBC 8.7 (4.5-11.0) X10^3/uL RBC 4.78 (4.0-5.2) X10^6/uL Hgb 14.2 (12.0-16.0) g/dL Hct 41.4 (36-46) % MCV 86.7 (80-100) fL MCH 29.8 (26-34) PG MCHC 34.3 (30-36) % RDW 13.1 (11.6-14.8) % Plt Count 436 H (150-400) X10^3/uL Neut % (Auto) 67.6 (50-75) % Lymph % (Auto) 23.6 L (25-40) % [place] % (Auto) 6.2 (3-14) % Eos % (Auto) 1.9 L (2-4) % Baso % (Auto) 0.7 (0-2) % Neut # (Auto) 5900 (1136-7765) /uL Lymph # (Auto) 2000 (5879-1718) /uL [place]yer # (Auto) 500 (0-900) /uL Eos # (Auto) 200 (0-450) /uL Baso # (Auto) 100 (0-100) /uL Sodium 139 (137-145) mmol/L Potassium 3.7 (3.4-5.1) mmol/L Chloride 104 (98-107) mmol/L Carbon Dioxide 26 (22-32) mmol/L BUN 11 (7-17) mg/dL Creatinine 0.57 (0.52-1.04) mg/dL Estimated GFR > 60 (>60) mL/min BUN/Creatinine Ratio 19.3 (6-22) Glucose 93 (70-100) mg/dL Calcium 8.7 (8.4-10.2) mg/dL Total Bilirubin 0.5 (0.2-1.3) mg/dL AST 31 (14-36) IU/L ALT 27 (<35) IU/L Alkaline Phosphatase 150 H (38-126) U/L Total Protein 8.1 (6.3-8.2) g/dL Albumin 4.3 (3.5-5.0) g/dL Globulin 3.8 (1.7-4.1) g/dL Albumin/Globulin Ratio 1.1 (1.0-2.8) Lipase 76 (23-300) U/L Serum , Qual Negative (Negative) Urine RBC 1-5/hpf (0-5/HPF) Urine WBC None seen (0-5/HPF) Ur Squamous Epith Cells 0-1 /hpf (0-5/HPF) Urine Bacteria None seen (None) Ur Culture Indicated? Cult not indicated Vol Urine Centrifuged 10ml (spun) Point of care testing: Urine Dip Bedside Urine Glucose Negative Bedside Urine Bilirubin - Negative Bedside Urine Ketone - Negative Urine Specific [place] 1.010 Bedside Urine Occult Blood +/- Bedside Urine pH 6.0 Bedside Urine Protein - Negative Bedside Urine Urobilinogen - Negative Bedside Urine Nitrite - Negative Bedside Urine Leukocytes - Negative Esterase Imaging Data US - abdomen: Radiologist's Impression: PROCEDURE: US ABDOMEN LIMITED INDICATIONS: ruq TECHNIQUE: Real-time focused scanning was performed of the abdomen, with image documentation. COMPARISON: [facility], US, US ABDOMEN LIMITED, 08/04/2022, 23:12. FINDINGS: There is mild increased echotexture through the liver consistent with mild fatty infiltration. The main portal vein direction of blood flow is normal. The gallbladder is free of inflammation or stones. The adjacent bile ducts are normal in caliber. The pancreas visualized is normal but portions of the pancreatic tail were poorly seen due to bowel gas. IMPRESSION: Somewhat limited evaluation due to prominent overlying bowel gas but no acute disease is found. Suspect mild fatty infiltration within the liver which is not enlarged. Direction of blood flow within the portal vein is normal. Dictated by: Joce Singer M.D. on 07/28/2023 at 15:54 Approved by: Joce Singer M.D. on 07/28/2023 at 15:55 CT scan - abdomen/pelvis: Radiologist's Impression: PROCEDURE: CT ABDOMEN PELVIS W CON INDICATIONS: right sided pain TECHNIQUE: After the administration of intravenous contrast, axial sections acquired from the lung bases to the pubic symphysis. Coronal and sagittal reformats were performed. For radiation dose reduction, the following was used: automated exposure control, adjustment of mA and/or kV according to patient size. COMPARISON: None. FINDINGS: Image quality: Diagnostic. Lower Chest: No significant findings. No evidence of implant rupture bilaterally. ABDOMEN: Liver: No solid mass. Gallbladder: No radiopaque gallstones or wall thickening. Biliary ducts: No biliary dilation. Pancreas: No ductal dilation. Spleen: Size is within normal limits. Adrenal Glands: No adrenal nodules. Kidneys and Ureters: No hydronephrosis. No solid mass. No complex renal cystic lesion which requires follow up. Stomach and Bowel: Normal colonic caliber, without significant wall thickening. Peritoneum: No abnormal intraperitoneal fluid. No free air. Ventral Wall: No significant ventral hernia. Abdominal Nodes: No retroperitoneal or mesenteric adenopathy by size criteria. Vessels: Aorta and inferior vena cava are normal in size. PELVIS: Pelvic Organs: Unremarkable. Bladder: No bladder wall thickening, accounting for underdistention. Pelvic Nodes: No enlarged lymph nodes. Miscellaneous: No inguinal hernias are seen. What appears to be a small normal appendix is seen at the inferior tip of the cecum, without adjacent inflammation. Bones: No aggressive osseous abnormality. IMPRESSION: Normal for age, source of right-sided pain is not identified. Normal appendix found, no evidence of appendicitis. Dictated by: Joce Singer M.D. on 07/28/2023 at 16:34 ECG Data Interpretation: Sinus rhythm 61 [place] interval 184 QRS [address] changes similar prior MDM Narrative Medical decision making narrative: Patient is a healthy 52-year-old female who presents today with worsening abdominal pain more on the right side. She has had diarrhea ongoing for the last 4 days no vomiting. Severe pain on exam. Blood work is overall reassuring she has no evidence of dehydration or acute infection no leukocytosis Imaging has been reviewed ultrasound does not show any evidence of cholelithiasis or acute cholecystitis. CT did not show any cause for increased pain Patient has been given Toradol and morphine here in the ED overall pain has improved. At this time with patient's ongoing diarrhea suspect gastroenteritis. She has been unable to provide us with a stool sample. Discharge Plan Departure Patient Disposition: Home Clinical Impression: Gastroenteritis Instructions: DI for Viral Gastroenteritis -- Adult Activity Restrictions/Additional Instructions: *You have been diagnosed with abdominal pain, gastritis *What to do: At this time I do think you have viral illness. Increase fluids as tolerated recommend Gatorade or Gatorade like product. May increase diet as tolerated *Continue to take medications as directed May try Imodium [id number] take as directed [place] 1 tablet every 6 hours if needed for severe *Follow up with your primary care provider in 2-3 days or call [phone] *Return to ER if you should have increasing dizziness lightheadedness or pain [or] any new, worsening or concerning symptoms CONTROLLED SUBSTANCE DISCHARGE (Narcotoic/benzodiazepine/Flexeril/Phenergan) 1. You have been prescribed narcotic medications, it does have acetaminophen/Tylenol/paracetamol in it, DO NOT TAKE MORE THAN 4,00mg in 24 hours of Tylenol. TRAMADOL DOES NOT CONTAIN TYLENOL 2. Please understand that we cannot provide further refills of narcotics, benzodiazepines or controlled substances through the ED and her pain management will need to be through your provider. 3. While on these medications you cannot drive or operate heavy machinery. 4. You cannot sign legal documents or perform any duties such as this. 5. As long as you're taking opiate pain medications he should also be taking a stool softener such as Colace, Dulcolax, MiraLAX or prune juice, to help avoid constipation. Prescriptions: New hydrocodone-acetaminophen 5-325 mg tablet 1 tab PO Q6H PRN (Reason: pain) Qty: 10 0RF No Action oxycodone 5 mg capsule 5 mg PO Q6H PRN (Reason: pain) cetirizine [Zyrtec] 10 mg Tablet 10 mg PO DAILY acetaminophen 325 mg Tablet 650 mg PO Q6HR PRN (Reason: Fever/Mild Pain (1-3)) Qty: 30 0RF albuterol sulfate [Ventolin HFA] 90 mcg/actuation Hfa Aerosol Inhaler 1 puff INH RTQ6HR PRN (Reason: Shortness Of Breath) Qty: 1 0RF guaifenesin [Mucus Relief ER] 600 mg Tablet Extended Release 12hr 600 mg PO Q12HR PRN (Reason: Cough) Qty: 30 0RF dexamethasone 6 mg tablet 6 mg PO DAILY Qty: 7 0RF hydrocodone-acetaminophen 5-325 mg tablet 1 tab PO Q4-6H PRN (Reason: pain) Qty: 10 0RF ketorolac 10 mg tablet 10 mg PO Q6H PRN (Reason: pain) Qty: 14 0RF cyclobenzaprine 5 mg tablet 5 mg PO TID PRN (Reason: muscle spasm) Qty: 14 0RF hydrocodone-acetaminophen 5-325 mg tablet 1 tab PO Q6H PRN (Reason: pain) Qty: 10 0RF Referrals: ProviderRizwana [Primary Care Provider] - Stand Alone Forms: Patient Portal/API
--- NOTE | 2023-07-28 15:54 | DI.CT.S_ITS ---
PROCEDURE: CT ABDOMEN PELVIS W CON INDICATIONS: right sided pain TECHNIQUE: After the administration of intravenous contrast, axial sections acquired from the lung bases to the pubic symphysis. Coronal and sagittal reformats were performed. For radiation dose reduction, the following was used: automated exposure control, adjustment of mA and/or kV according to patient size. COMPARISON: None. FINDINGS: Image quality: Diagnostic. Lower Chest: No significant findings. No evidence of implant rupture bilaterally. ABDOMEN: Liver: No solid mass. Gallbladder: No radiopaque gallstones or wall thickening. Biliary ducts: No biliary dilation. Pancreas: No ductal dilation. Spleen: Size is within normal limits. Adrenal Glands: No adrenal nodules. Kidneys and Ureters: No hydronephrosis. No solid mass. No complex renal cystic lesion which requires follow up. Stomach and Bowel: Normal colonic caliber, without significant wall thickening. Peritoneum: No abnormal intraperitoneal fluid. No free air. Ventral Wall: No significant ventral hernia. Abdominal Nodes: No retroperitoneal or mesenteric adenopathy by size criteria. Vessels: Aorta and inferior vena cava are normal in size. PELVIS: Pelvic Organs: Unremarkable. Bladder: No bladder wall thickening, accounting for underdistention. Pelvic Nodes: No enlarged lymph nodes. Miscellaneous: No inguinal hernias are seen. What appears to be a small normal appendix is seen at the inferior tip of the cecum, without adjacent inflammation. Bones: No aggressive osseous abnormality. IMPRESSION: Normal for age, source of right-sided pain is not identified. Normal appendix found, no evidence of appendicitis. Dictated by: Joce Singer M.D. on 07/28/2023 at 16:34 Approved by: Joce Singer M.D. on 07/28/2023 at 16:36
[2023-07-28 16:02] LABS: Pregnancy Test Serum,Qual Negative (Negative)
[2023-07-28] MEDS: MORPHINE 4 MG/ML INJ IV (16:06)
[2023-07-28] MEDS: SODIUM CHLORIDE 0.9% 1,000 ML 1000 ML IV (16:06)
[2023-07-28 16:45] VITALS: BP 137/80; PULSE 59; RESP 16; O2SAT 100
[2023-07-28 16:59] VITALS: PULSE 59; O2SAT 100
[2023-07-28 17:00] VITALS: PULSE 59; O2SAT 100
[2023-07-28 17:35] VITALS: BP 134/86; PULSE 63; RESP 16; TEMP 36.8; O2SAT 100
== END 2023-07-28 17:37 | disposition home or self-care (01) ==
PROVIDERS: Emergency Provider Emergency Medicine
DX: K52.9 Noninfective gastroenteritis and colitis, unspecified (principal)
CPT/HCPCS: 36415; 74177; 76705; 80053; 81003; 81015; 83690; 84703; 85025; 87086; 93005; 96361; 96374; 96375; 99284; J1885; J2270; J2405

== ENCOUNTER 2023-11-28 16:19 | Emergency (ER) | payer OTHER, SELFPAY ==
[2023-11-28] VITALS (10 sets, daily range): BP systolic 108–173; BP diastolic 71–95; PULSE 69–104; RESP 12–59; TEMP 36.8; O2SAT 94–100; BMI 42.5
--- NOTE | 2023-11-28 16:59 | DI.RAD.S_ITS ---
PROCEDURE: XR CHEST 1V INDICATIONS: chest pain TECHNIQUE: One view of the chest was acquired. COMPARISON: [facility], CR, XR CHEST 1V, 01/13/2022, 21:09. FINDINGS: Surgical changes and devices: None. Lungs and pleura: Mildly low lung volumes. No focal consolidation. No pleural effusions or pneumothorax. Mediastinum: Mediastinal contours appear normal. Heart size is normal. Bones and chest wall: No suspicious bony lesions. Overlying soft tissues appear unremarkable. IMPRESSION: No acute cardiopulmonary abnormality is seen. Approved by: Kahlil Ledezma M.D. on 11/28/2023 at 17:35
--- NOTE | 2023-11-28 17:06 | EKG_ITS ---
[address] [id number] Test Date: 2023-11-28 Pat Name: Leighann Elizalde Department: [facility] Room: Gender: Female Supervisor Modern Languages: : 1970 Requested By: Order Number: [id number] Reading MD: Preet Lizama Measurements Intervals [place] Rate: 69 P: 21 GA: 196 QRS: 35 QRSD: 78 T: 34 QT: 410 QTc: 439 Interpretive Statements Normal sinus rhythm Electronically Signed On 11-29-2023 19:43:03 PDT by Preet Lizama
[2023-11-28 17:16] LABS: Add Manual Diff / Slide Review NO; Basophils Absolute Auto 100 /uL (0-100); Basophils Percent Auto 0.8 % (0-2); Eosinophils Absolute Auto 400 /uL (0-450); Eosinophils Percent Auto 3.6 % (2-4); Hematocrit 41.1 % (36-46); Hemoglobin 14.3 g/dL (12.0-16.0); Lymphocytes Absolute Auto 2400 /uL (1100-4500); Lymphocytes Percent Auto 24.7 % (25-40); Mean Corpuscular HGB Conc 34.9 % (30-36); Mean Corpuscular Volume 85.9 fL (80-100); Monocytes Absolute Auto 900 /uL (0-900); Monocytes Percent Auto 9.3 % (3-14); Neutrophils Absolute Auto 6000 /uL (1500-7000); Neutrophils Percent Auto 61.6 % (50-75); Platelet Count 416 X10^3/uL (150-400); Red Blood Cell Count 4.78 X10^6/uL (4.0-5.2); Red Cell Distribution Width 13.5 % (11.6-14.8); White Blood Cell Count 9.8 X10^3/uL (4.5-11.0)
[2023-11-28 17:30] LABS: Prothrombin Time 11.5 SECONDS (9.4-12.5)
[2023-11-28 17:33] LABS: PTT Partial Thromboplastin Tim 36 SECONDS (25.1-36.5)
[2023-11-28 17:34] LABS: Alanine Aminotransferase 39 IU/L (<35); Albumin 4.3 g/dL (3.5-5.0); Albumin Globulin Ratio 1.2 (1.0-2.8); Alkaline Phosphatase 206 U/L (38-126); Aspartate Aminotransferase 40 IU/L (14-36); BUN Creatinine Ratio 17.5 (6-22); Bilirubin Total 0.4 mg/dL (0.2-1.3); Blood Urea Nitrogen 11 mg/dL (7-17); Calcium 8.8 mg/dL (8.4-10.2); Carbon Dioxide 27 mmol/L (22-32); Chloride 105 mmol/L (98-107); Creatine Kinase 51 U/L (30-135); Estimated Glomerular Filt Rate > 60 mL/min (>60); Globulin 3.7 g/dL (1.7-4.1); Glucose 104 mg/dL (70-100); HEMOLYSIS < 15 (0-50); Lipase 68 U/L (23-300); Magnesium 2.6 mg/dL (1.6-2.3); Potassium 3.5 mmol/L (3.4-5.1); Sodium 138 mmol/L (137-145)
[2023-11-28 17:46] LABS: NT-proBNP (BNP-Adult 18+) < 20 pg/mL (<125); Troponin I < 0.012 ng/mL (0.01-0.034)
--- NOTE | 2023-11-28 17:58 | ED_ITS ---
HPI - Chest Pain General Chief Complaint: Chest Pain Stated Complaint: sent by [facility], Covid +, difficulty breathing Time Seen by Provider: 11/28/23 17:49 Source: patient Mode of arrival: Wheelchair History of Present Illness HPI narrative: 53-year-old female with history of asthma presents for sore throat, nonproductive cough, malaise. Tested positive for COVID-19. She went to the [facility] walk[facility]in [facility], but she told him that she was having trouble breathing and some central chest pains with her cough and they referred her to the emergency department for further evaluation. Patient has been taking Mucinex and the occasional Tylenol for symptoms at home Related Data Home Medications Medication Instructions Recorded Confirmed oxycodone 5 mg capsule 5 mg PO Q6H PRN pain 12/01/21 01/13/22 cetirizine 10 mg tablet (Zyrtec) 10 mg PO DAILY 01/13/22 01/13/22 Previous Rx's Medication Instructions Recorded acetaminophen 325 mg tablet 650 mg (2 x 325 mg) PO Q6HR PRN 01/16/22 Fever/Mild Pain (1-3) #30 tabs albuterol sulfate 90 mcg/actuation 1 puff INH RTQ6HR PRN Shortness Of 01/16/22 aerosol inhaler (Ventolin HFA) Breath #1 g dexamethasone 6 mg tablet 6 mg PO DAILY #7 tabs 01/16/22 guaifenesin 600 mg tablet, 600 mg PO Q12HR PRN Cough #30 tabs 01/16/22 extended release 12 hr (Mucus Relief ER) hydrocodone 5 mg-acetaminophen 325 1 tab PO Q4-6H PRN pain #10 tabs 08/05/22 mg tablet ketorolac 10 mg tablet 10 mg PO Q6H PRN pain #14 tabs 08/05/22 cyclobenzaprine 5 mg tablet 5 mg PO TID PRN muscle spasm #14 04/25/23 tabs hydrocodone 5 mg-acetaminophen 325 1 tab PO Q6H PRN pain #10 tabs 04/25/23 mg tablet hydrocodone 5 mg-acetaminophen 325 1 tab PO Q6H PRN pain #10 tabs 07/28/23 mg tablet benzonatate 200 mg capsule 200 mg PO BID-TID PRN cough #30 11/28/23 caps Allergies Allergy/AdvReac Type Severity Reaction Status Date / Time prochlorperazine Allergy Severe cardiac Verified 11/28/23 16:54 [From Compazine] arrest venom-honey bee Allergy Severe Anaphylaxis Verified 11/28/23 16:54 Patient History Medical History Asthma Surgical History No history of previous surgery Family History Mother Hypertension Other Diabetes mellitus Social History household members: spouse Smoking Status: Never smoker Smoking Status: Never smoker alcohol intake frequency: holidays/special occasions only Substance Use Type: does not use Exam Initial Vital Signs Initial Vital Signs: Vital Signs Temperature 98.3 F 11/28/23 16:51 Pulse Rate 82 11/28/23 16:51 Respiratory Rate 20 11/28/23 16:51 Blood Pressure 173/95 H 11/28/23 16:51 Pulse Oximetry 97 11/28/23 16:51 Oxygen Delivery Method Room Air 11/28/23 16:51 Const: Awake, alert, no acute distress, nontoxic appearing Cardiac: regular rate, regular rhythm RESP: unlabored, clear bilaterally, no wheezing GI: Soft, nontender, nondistended, no rebound, no guarding MSK: Atraumatic, full range of motion, pulses equal Skin: Warm, Dry, intact, no rashes Neuro: AO x3, CN II-XII grossly intact, moves all extremities Course Orders Ordered: ED Orders 11/28/23 16:59 XR chest 1V Stat EKG-12 Lead Stat 11/28/23 17:03 Complete Blood Count AUTO DIFF Stat Comprehensive Metabolic Panel Stat Lipase Stat Magnesium Stat NT-proBNP (BNP-Adult 18+) Stat PTT Partial Thromboplastin Dhaval Stat Prothrombin Time INR Stat Troponin & CK Cardiac Panel Stat Discontinued Medications Acetaminophen (Acetaminophen 325 Mg Tablet) 975 mg PO NOW ONE Stop: 11/28/23 18:28 Last Admin: 11/28/23 18:48 Dose: 975 mg Documented By: ALESHIA Albuterol/Ipratropium (Albuterol/Ipratropium 3 Ml Ampul) 3 ml INH NOW ONE Stop: 11/28/23 18:47 Last Admin: 11/28/23 18:52 Dose: 3 ml Documented By: ALESHIA Aspirin (Aspirin 81 Mg Chew Tab) 324 mg PO NOW ONE Stop: 11/28/23 17:00 Sodium Chloride (Normal Saline 0.9%) 1,000 mls @ 1,000 mls/hr IV BOLUS ONE Stop: 11/28/23 19:26 Last Infusion: 11/28/23 19:39 Dose: Infused Documented By: JOSE M Admin: 11/28/23 18:51 Dose: 1,000 mls/hr Documented By: ALESHIA Ketorolac Tromethamine (Ketorolac 30 Mg/Ml Vial) 15 mg IV NOW ONE Stop: 11/28/23 18:28 Last Admin: 11/28/23 18:49 Dose: 15 mg Documented By: ALESHIA Vital Signs Vital signs: Vital Signs - 8 hr 11/28/23 16:51 11/28/23 17:29 11/28/23 17:30 Temperature 98.3 F Pulse Rate 82 Respiratory Rate 20 Blood Pressure 173/95 H 128/78 Pulse Oximetry 97 99 Oxygen Delivery Method Room Air 11/28/23 17:30 11/28/23 17:31 11/28/23 17:31 Temperature Pulse Rate 72 69 Respiratory Rate 12 Blood Pressure 129/89 Pulse Oximetry 98 98 Oxygen Delivery Method Room Air 11/28/23 18:00 11/28/23 18:00 11/28/23 18:30 Temperature Pulse Rate 75 71 Respiratory Rate 20 17 Blood Pressure 133/84 Pulse Oximetry 98 97 Oxygen Delivery Method 11/28/23 18:31 11/28/23 18:31 11/28/23 19:00 Temperature Pulse Rate 81 Respiratory Rate 24 Blood Pressure 108/71 111/75 Pulse Oximetry 94 Oxygen Delivery Method 11/28/23 19:00 11/28/23 19:30 11/28/23 19:31 Temperature Pulse Rate 78 85 Respiratory Rate 18 22 Blood Pressure 133/76 Pulse Oximetry 100 98 Oxygen Delivery Method 11/28/23 19:31 Temperature Pulse Rate 104 H Respiratory Rate 59 H Blood Pressure Pulse Oximetry 97 Oxygen Delivery Method MDM - Chest Pain Differential Diagnosis Differential diagnosis: Likely unstable angina pectoris, costochondritis and chest pain Lab Data 11/28/23 17:03 11/28/23 17:03 Labs: Lab Results 11/28/23 Range/Units 17:03 WBC 9.8 (4.5-11.0) X10^3/uL RBC 4.78 (4.0-5.2) X10^6/uL Hgb 14.3 (12.0-16.0) g/dL Hct 41.1 (36-46) % MCV 85.9 (80-100) fL MCH 30.0 (26-34) PG MCHC 34.9 (30-36) % RDW 13.5 (11.6-14.8) % Plt Count 416 H (150-400) X10^3/uL Neut % (Auto) 61.6 (50-75) % Lymph % (Auto) 24.7 L (25-40) % [place] % (Auto) 9.3 (3-14) % Eos % (Auto) 3.6 (2-4) % Baso % (Auto) 0.8 (0-2) % Neut # (Auto) 6000 (1230-5030) /uL Lymph # (Auto) 2400 (2678-8969) /uL [place] # (Auto) 900 (0-900) /uL Eos # (Auto) 400 (0-450) /uL Baso # (Auto) 100 (0-100) /uL PT 11.5 (9.4-12.5) SECONDS INR 1.0 (0.9-1.3) APTT 36 (25.1-36.5) SECONDS Sodium 138 (137-145) mmol/L Potassium 3.5 (3.4-5.1) mmol/L Chloride 105 (98-107) mmol/L Carbon Dioxide 27 (22-32) mmol/L BUN 11 (7-17) mg/dL Creatinine 0.63 (0.52-1.04) mg/dL Estimated GFR > 60 (>60) mL/min BUN/Creatinine Ratio 17.5 (6-22) Glucose 104 H (70-100) mg/dL Calcium 8.8 (8.4-10.2) mg/dL Magnesium 2.6 H (1.6-2.3) mg/dL Total Bilirubin 0.4 (0.2-1.3) mg/dL AST 40 H (14-36) IU/L ALT 39 H (<35) IU/L Alkaline Phosphatase 206 H (38-126) U/L Total Creatine Kinase 51 (30-135) U/L Troponin I < 0.012 (0.01-0.034) ng/mL NT-Pro-B Natriuret Pep < 20 (<125) pg/mL Total Protein 8.0 (6.3-8.2) g/dL Albumin 4.3 (3.5-5.0) g/dL Globulin 3.7 (1.7-4.1) g/dL Albumin/Globulin Ratio 1.2 (1.0-2.8) Lipase 68 (23-300) U/L Imaging Data Chest x-ray: Radiologist's Impression: PROCEDURE: XR CHEST 1V INDICATIONS: chest pain TECHNIQUE: One view of the chest was acquired. COMPARISON: [facility], , XR CHEST 1V, 01/13/2022, 21:09. FINDINGS: Surgical changes and devices: None. Lungs and pleura: Mildly low lung volumes. No focal consolidation. No pleural effusions or pneumothorax. Mediastinum: Mediastinal contours appear normal. Heart size is normal. Bones and chest wall: No suspicious bony lesions. Overlying soft tissues appear unremarkable. IMPRESSION: No acute cardiopulmonary abnormality is seen. Approved by: Kahlil Ledezma M.D. on 11/28/2023 at 17:35 ECG Data Interpretation: Normal sinus rhythm at 69 beats per minute. Normal NM, no ST T wave changes, no STEMI MDM Narrative Medical decision making narrative: Patient with multiple symptoms consistent with upper respiratory infection. Saturating well on room air, lungs are clear to auscultation bilaterally. Patient's main complaint is her cough. Although her lungs are clear she did request a nebulizer treatment, which was given to her. Laboratory work shows WBC count 9.8, hemoglobin 14.3, platelets 416 (chronic, at baseline). Sodium 138, potassium 3.5, chloride 105, creatinine 0.63, magnesium 2.6, troponin undetectable, BNP undetectable. Chest x-ray shows no acute abnormalities. Patient counseled on supportive care measures while recovering from COVID. Recommended Tylenol and ibuprofen as needed for fever or pain, [id number] cough medication such as Robitussin. Recommended she continue Mucinex. Prescription for Tessalon Perles sent to pharmacy of choice. Discharge Plan Departure Patient Disposition: Home Clinical Impression: COVID-19 Instructions: COVID-19 Activity Restrictions/Additional Instructions: Your laboratory work and chest x-ray imaging today were normal. You do not have any pneumonia or strain on your heart. Continue to take your home medications as prescribed. Use your inhaler as needed if you have shortness of breath. Use [id number] cough and cold medications such as Delsym and Mucinex for symptoms. You may take Tylenol and ibuprofen as needed for pain or fever. Prescriptions: New benzonatate 200 mg capsule 200 mg PO BID-TID PRN (Reason: cough) Qty: 30 0RF No Action oxycodone 5 mg capsule 5 mg PO Q6H PRN (Reason: pain) cetirizine [Zyrtec] 10 mg Tablet 10 mg PO DAILY acetaminophen 325 mg Tablet 650 mg PO Q6HR PRN (Reason: Fever/Mild Pain (1-3)) Qty: 30 0RF albuterol sulfate [Ventolin HFA] 90 mcg/actuation Hfa Aerosol Inhaler 1 puff INH RTQ6HR PRN (Reason: Shortness Of Breath) Qty: 1 0RF guaifenesin [Mucus Relief ER] 600 mg Tablet Extended Release 12hr 600 mg PO Q12HR PRN (Reason: Cough) Qty: 30 0RF dexamethasone 6 mg tablet 6 mg PO DAILY Qty: 7 0RF hydrocodone-acetaminophen 5-325 mg tablet 1 tab PO Q4-6H PRN (Reason: pain) Qty: 10 0RF ketorolac 10 mg tablet 10 mg PO Q6H PRN (Reason: pain) Qty: 14 0RF cyclobenzaprine 5 mg tablet 5 mg PO TID PRN (Reason: muscle spasm) Qty: 14 0RF hydrocodone-acetaminophen 5-325 mg tablet 1 tab PO Q6H PRN (Reason: pain) Qty: 10 0RF hydrocodone-acetaminophen 5-325 mg tablet 1 tab PO Q6H PRN (Reason: pain) Qty: 10 0RF Referrals: ProviderRizwana [Primary Care Provider] - Stand Alone Forms: Patient Portal/API
[2023-11-28] MEDS: ACETAMINOPHEN 325 MG TABLET 975 MG PO (18:48)
[2023-11-28] MEDS: KETOROLAC 30 MG/ML VIAL 15 MG IV (18:49)
[2023-11-28] MEDS: SODIUM CHLORIDE 0.9% 1,000 ML 1000 ML IV (18:51)
[2023-11-28] MEDS: ALBUTEROL/IPRATROPIUM 3 ML AMPUL INH (18:52)
== END 2023-11-28 19:51 | disposition home or self-care (01) ==
PROVIDERS: Emergency Medicine; Emergency Provider Emergency Medicine
DX: U07.1 COVID-19 (principal); R07.9 Chest pain, unspecified
CPT/HCPCS: 36415; 71045; 80053; 82550; 83690; 83735; 83880; 84484; 85025; 85610; 85730; 93005; 96374; 99284; J1885

== ENCOUNTER → 2023-12-27 14:21 | Outpatient (CLI) | payer OTHER, SELFPAY | PROVIDERS: Referring Provider Obstetrics & Gynecology; Visit Provider Obstetrics & Gynecology | DX: N89.8 Other specified noninflammatory disorders of vagina (principal) | CPT/HCPCS: 87480; 87510; 87660 ==

== ENCOUNTER → 2024-01-12 06:54 | Outpatient (CLI) | payer OTHER, SELFPAY ==
--- NOTE | 2024-01-12 06:55 | DI.US.S_ITS ---
PROCEDURE: US PELVIC COMPLETE INDICATIONS: RIGHT PELVIC PAIN; HISTORY OVARIAN CYST TECHNIQUE: Real-time scanning was performed of the pelvic organs, with image documentation. Additional endovaginal scanning was necessary due to incomplete visualization of the adnexal and endometrial structures by transabdominal scanning. COMPARISON: [facility], CT, CT ABDOMEN PELVIS W CON, 07/28/2023, 16:13. FINDINGS: Uterus: Uterus is anteverted and normal in size at 8.6 x 5.1 x 4.2 cm. The myometrium is homogeneous. The endometrium measures 5.0 mm combined thickness. Ovaries: Ovaries were not visualized. No adnexal masses are seen. Other: No pathologic free abdominal or pelvic fluid. IMPRESSION: No abnormality demonstrated with pelvic ultrasound. We strive to produce accurate, complete, and clear reports of imaging services. To assist us in improving patient care, this report was composed using standard report templates and voice recognition software. Therefore, it may contain abnormal punctuation, insertions and/or omissions. Occasional wrong-word or sound-alike substitutions may occur. Though we review the report and make efforts to correct it, we do recommend that the report be read carefully in proper context to recognize any text inaccuracies. Dictated by: Yousif Keith M.D. on 01/15/2024 at 10:24 Approved by: Yousif Keith M.D. on 01/15/2024 at 10:41
== END ==
PROVIDERS: Referring Provider Obstetrics & Gynecology; Visit Provider Obstetrics & Gynecology
DX: N83.201 Unspecified ovarian cyst, right side (principal)
CPT/HCPCS: 76830; 76856

== ENCOUNTER → 2024-01-19 11:46 | Outpatient (CLI) | payer OTHER, SELFPAY ==
[2024-01-19 13:41] LABS: Cancer Antigen 125 9.3 U/mL (0-35)
[2024-01-22 10:08] LABS: Human Epididymis Prot 4 46.1 pmol/L (0.0-105.2)
== END ==
LOC: LAB 11:47
PROVIDERS: Referring Provider Obstetrics & Gynecology; Visit Provider Obstetrics & Gynecology
DX: R10.31 Right lower quadrant pain (principal); G89.29 Other chronic pain
CPT/HCPCS: 36415; 86304; 86305

== ENCOUNTER 2025-03-05 16:59 | Emergency (ER) | payer OTHER, SELFPAY ==
[2025-03-05 17:04] VITALS: BP 173/84; PULSE 92; RESP 14; TEMP 36.1; O2SAT 99; BMI 46.0
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
[2025-03-05] MEDS: CYCLOBENZAPRINE 10 MG TABLET PO (19:02)
[2025-03-05 19:30] VITALS: BP 171/91; PULSE 84; RESP 22; O2SAT 97
== END 2025-03-05 19:34 | disposition home or self-care (01) ==
PROVIDERS: Emergency Provider Family Medicine
DX: M54.50 Low back pain, unspecified (principal); M79.671 Pain in right foot; X58.XXXA Exposure to other specified factors, initial encounter
CPT/HCPCS: 72100; 73620; 99283